=== PATIENT | male | born 1960 | race Caucasian/White ===

== ENCOUNTER → 2022-05-24 08:05 | Outpatient (CLI) | payer OTHER, SELFPAY ==
[2022-05-24 09:30] LABS: Add Manual Diff / Slide Review NO; Basophils Absolute Auto 0 /uL (0-100); Basophils Percent Auto 0.4 % (0-2); Eosinophils Absolute Auto 200 /uL (0-450); Hemoglobin 11.1 g/dL (13.5-17.5); Lymphocytes Absolute Auto 1100 /uL (1100-4500); Lymphocytes Percent Auto 13.6 % (25-40); Mean Corpuscular HGB Conc 31.7 % (30-36); Mean Corpuscular Hemoglobin 27.2 PG (26-34); Mean Corpuscular Volume 85.9 fL (80-100); Monocytes Absolute Auto 900 /uL (0-900); Neutrophils Absolute Auto 6000 /uL (1500-7000); Platelet Count 228 X10^3/uL (150-400); Red Blood Cell Count 4.08 X10^6/uL (4.5-5.9); Red Cell Distribution Width 14.2 % (11.6-14.8); White Blood Cell Count 8.2 X10^3/uL (4.5-11.0)
[2022-05-24 09:42] LABS: Hemoglobin A1C% w Est Avg Glu 6.4 % (4.0-6.0)
[2022-05-24 09:58] LABS: BUN Creatinine Ratio 24.5 (6-22); Blood Urea Nitrogen 26 mg/dL (9-20); Calcium 9.3 mg/dL (8.4-10.2); Carbon Dioxide 24 mmol/L (22-32); Chloride 103 mmol/L (98-107); Estimated Glomerular Filt Rate > 60 mL/min (>60); Glucose 68 mg/dL (80-110); HEMOLYSIS < 15 (0-50); Potassium 4.5 mmol/L (3.4-5.1); Sodium 139 mmol/L (137-145)
== END ==
PROVIDERS: Referring Provider Orthopaedic Surgery Orthopaedic Surgery of the Spine; Visit Provider Orthopaedic Surgery Orthopaedic Surgery of the Spine
DX: Z01.818 Encounter for other preprocedural examination (principal); Z01.812 Encounter for preprocedural laboratory examination; R73.9 Hyperglycemia, unspecified
CPT/HCPCS: 36415; 80048; 83036; 85025; 93005

== ENCOUNTER → 2022-06-11 09:07 | Outpatient (CLI) | payer OTHER, SELFPAY ==
[2022-06-11 09:50] LABS: COVID19 -Nasal RAPID Negative (Negative)
== END ==
PROVIDERS: Referring Provider Orthopaedic Surgery Orthopaedic Surgery of the Spine; Visit Provider Orthopaedic Surgery Orthopaedic Surgery of the Spine
DX: Z20.822 Contact with and (suspected) exposure to COVID-19 (principal)
CPT/HCPCS: 87635; C9803

== ENCOUNTER 2022-06-13 10:41 | Inpatient (IN) | payer OTHER, SELFPAY ==
[2022-06-05 09:40] VITALS: BMI 26.9
[2022-06-13] VITALS (19 sets, daily range): BP systolic 84–144; BP diastolic 51–86; PULSE 79–98; RESP 11–30; TEMP 36.2–37.2; O2SAT 92–99; BMI 26.9; BMI 28.7
[2022-06-13] MEDS: LACTATED RINGERS 1,000 ML 42 ML IV ×2 (11:27→16:34)
--- NOTE | 2022-06-13 12:37 | PM.PREOP ---
Pre-operative Note COVID-19 COVID-19 status: Negative Result date/Date tested (Pos, Neg/Pending): 06/12/22 Criteria for continued procedure: Expected advancement of disease process, Possibility delay results in more complex future surgery or treatment, Increased loss of function, Continuing or worsening of significant or severe pain, Deterioration of the patient's condition or overall health and Delay expected to result in less-positive ultimate med/surg outcome Interval Note History & Physical reviewed/Exam performed by Physician: Yes Changes to H&P: No
--- NOTE | 2022-06-13 13:15 | SUR.PREOP ---
Pt with moderate hand and arm tremors. Pt given his noon dose of Carb-levodopa. Pt states standing /walking helps with the tremors. Pt up with walker, walked around the unit with assist x1.
[2022-06-13] MEDS: CEFAZOLIN 2 GM/100 ML PREMIX 100 ML IV ×2 (13:42→20:28)
--- NOTE | 2022-06-13 14:05 | SUR.OPER ---
Prone on spine table, head in foam head support, padded chest and pelvic supports, gel pad at knees, lower legs supported by pillows; nipples, genitalia and toes free of pressure, arms secured on foam padded arm boards at <90 degrees abduction. Tape over blanket at thigh secured to table.
[2022-06-13] MEDS: BUPIVACAINE LIPOSOME 266 MG/20 ML VIAL INJ (14:10)
[2022-06-13] MEDS: BUPIVACAINE 0.5% W/ EPI (PF) 30 ML VIAL INJ (14:11)
--- NOTE | 2022-06-13 17:13 | DI.RAD.S_ITS ---
PROCEDURE: XR LUMBAR SPINE 2-3V INDICATIONS: L3-4, L4-5 TLIF TECHNIQUE: Intraoperative spot views of the lumbar spine were acquired. COMPARISON: None. FINDINGS: Intraoperative spot films are submitted and demonstrate lumbar fusion hardware. IMPRESSION: Intraoperative spot imaging as above. Dictated by: Analia Collins M.D. on 06/13/2022 at 17:48 Approved by: Analia Collins M.D. on 06/13/2022 at 17:48
--- NOTE | 2022-06-13 17:37 | P.OP_ITS ---
Operative Date/Time/Diagnoses Date of procedure: 06/13/22 Time of procedure: 13:20 Pre-op diagnosis: 1. L3-4, L4-5 post laminectomy syndrome 2. L3-4, L4-5 spinal stenosis with radiculopathy 3. Lumbar scoliosis Post-op diagnosis: same Procedure & Clinicians Procedure: 1. L3-4, L4-5 Postero-lateral and posterior interbody fusion 2. L3-4, L4-5 interbody cage placement. 3. L3-4, L4-5 decompressive laminectomy with bilateral facetecomies 4. L3-4, L4-5 Posterior segmental instrumentation 5. [place] of bone marrow from iliac crest 6. Utilization of microsurgical technique and operating microscope 7. Utilization of robotic assisted navigation Same procedure as scheduled: Yes Indications: Patient has been having chronic back pain and worsening lumbar radiculopathy. Had history of lumbar laminectomy with significant epidural scarring and degenerative scoliosis. Patient failed multiple conservative management with worsening pain weakness and numbness in his lower extremity. Patient has been having difficulty performing activity of daily living. After discussing risks benefits of treatment options, patient elected proceed with surgery. Surgeon: Sylvia Grace Cellar Hand: Hina Garg Anesthesia Type: General Operative Notes Closure Type: primary Specimen(s): none sent Prosthetic devices, grafts, tissues, transplants, or devices: GLobus CREO MIS screws, Rise cages Applied: catheter Estimated Blood Loss (mL): 200 Blood products transfused: none Procedure in detail: Patient was seen in the preoperative area. Risks and benefits of the surgery was discussed with the patient. Informed consent was obtained from the patient and placed in the chart. Surgical site was marked. Patient was taken to the operative room. General anesthesia was administered. Prophylactic antibiotic was given to the patient less than 30 min before the incision was made. Patient was placed into a prone position on the Errol table. Patient's back was then prepped and draped in the sterile fashion. Time-out was performed at this time. After patient was prepped and draped, patient's PSIS was palpated and marked bilaterally. Small 1 cm incision was made over the PSIS for placement of the reference probes. Two trocar was placed into the PSIS 1 on each side. The reference probe was attached to the trocar of the reference apparatus. At this time the C-arm imaging was used to confirm AP and lateral of L3, L4-L5 vertebrae and merged the C-arm imaging using the [employer] robotic navigation system with the CT of the lumbar spine. After successful merging was completed and confirmed, skin marker was used to rhonda out the skin incision using the [employer] robotic arm. Bilateral incision was made at this time. Pre templated trajectory was used and guided using the [employer] robotic navigation system for bilateral L3 L4, L5 pedicle screw placement. This was done by using the robotic arm to guide the high-speed bur to make a cortical entry point. Next a drill was placed also using the robotic arm and guided using the navigation system drilling partially through bilateral L3, L4, L5 pedicles. Next L3, L4, L5 pedicle screws it was pre templated and measured was placed onto the power delivery driver assistant and inserted into the pedicles bilaterally. After all 6 screws were placed C-arm imaging was taken of both AP and lateral to confirm the placement. Excellent placement of the screws were confirmed and a matched precisely with the pre planned screw placement using the navigation system. MARs retractor was inserted using [employer] guidence. Globus MARS retractors was placed inside the incision and docked onto the L3, L4 lamina. Using microsurgical technique and operating microscope, a L3, L4 laminectomy and L3-4, L4-5 facetectomy was performed using a [place] rongeur. Patient was found have severe lateral recess and neural foramen stenosis which was fully decompressed after the laminectomy facetectomy. More than 75% of the facets were removed during the process of decompression rendering L3-4, L4-5 level grossly unstable and required a fusion procedure at the same time. The disc space at L3-4, L4-5 was identified, and a total diskectomy was performed at L3- 4, L4-5 level. The endplates were decorticated using a rasp and shaver. The total diskectomy and decortication was performed at L3-4, L4-5 level in order to to accomplish a L3-4, L4-5 fusion. The local bone from the laminectomy and facetectomy was saved for local bone grafting. After the total diskectomy and decortication was completed, Trifecta bone graft material was combined with local bone that was harvested earlier. At this time, a separate skin is incision was made over the iliac crest. A Jamshidi needle was inserted into the iliac crest through a separate skin incision. 5 cc of bone marrow aspiration was obtained through the separate skin incision using a Jamshidi needle from the iliac crest. The bone marrow aspiration was combined with local bone and the Trifecta bone grafting material. The bone grafting material was placed into the L3-4, L4-5 interbody space along with expandable cages. One cage each was inserted into the L3-4 L4-5 interbody space along with bone graft material. The cage was expanded to its maximum height using the torque limiting screwdriver. The disc preparation as well as the cage insertion were also performed under navigation guidance. After the cage was placed, AP and lateral C-arm imaging was taken to confirm placement of the cage and excellent position was confirmed. Globus MARS retractor was inserted and docked onto the L3-4, L4-5 posterolateral gutter on the right side. Using the power drill, posterior-lateral decortication was performed at L3-4, L4-5 level until bleeding cortical bone was identified. The remaining bone grafting material was placed into the L3-4, L4-5 posterior lateral gutter he order to accomplish posterolateral fusion at the L3- 4, L4-5 level. At this time the tulips were attached to the L3, L4-L5 pedicle screw shanks. After measuring the length of the rods, they were inserted into the tulips of the pedicle screws and locked in place using locking caps and torque limiting screwdriver bilaterally. Total 6 caps and 2 titanium rods was used in order to complete the posterior instrumentation construct. After all the hardware was placed, and confirmed with AP and lateral C-arm imaging, the wound was then irrigated with sterile normal saline and packed with Ray-Mauro gauze for 3 min to accomplish hemostasis. After the gauze was removed the deep fascia was closed with #1 Vicryl suture. The subcutaneous layer was closed with 2-0 Vicryl. The skin was closed with skin emil. Patient tolerated the procedure well. There were no complications. Neuro monitoring system was used to monitor patient's neurologic status throughout entire procedure. There was no disturbance of the neural monitoring signals throughout the case. Complications: none Post-operative Condition: stable Disposition: PACU Plan for aftercare: Admit to inpatient hospital
[2022-06-13] MEDS: HYDROMORPHONE 2 MG INJ IV ×2 (17:55→18:03)
[2022-06-13] MEDS: hydrOXYzine 50 MG/ML INJ 25 MG IM (18:01)
[2022-06-13] MEDS: OXYCODONE IR 5 MG TABLET PO (18:19)
--- NOTE | 2022-06-13 19:51 | SUR.PHASEI ---
184: Brought patient to room and left with nurse Contreras on the floor. Got a call from floor nurse Beth that pt had a low BP. I went up to floor to assess patient, he was drowsy, however, vital signs were stable when I arrived at 1850. Monitored patient with at bedside, vital signs remained stable, pt became less drowzy, discussed with floor RN Ben and he said that he felt comfortable with me returning to PACU, pt was awake, stable, with a specialty call light for Parkinson's and at bedside at time of my departure.
[2022-06-13] MEDS: DOCUSATE 100 MG CAPSULE PO (20:29)
[2022-06-13] MEDS: INSULIN GLARGINE 100 UNIT/ML 3ML PEN 12 UNIT SUBCUT (20:29)
[2022-06-13] MEDS: CARBIDOPA-LEVODOPA ER 50/200 TABLET 2 EACH PO (20:29)
[2022-06-13] MEDS: SENNOSIDES 8.6 MG TABLET 17.2 MG PO (20:29)
[2022-06-13] MEDS: INSULIN LISPRO 100 UNIT/ML 3ML VIAL SUBCUT (20:41)
[2022-06-13] MEDS: SODIUM CHLORIDE 0.9% 1,000 ML 100 ML IV (20:51)
[2022-06-13] MEDS: OXYCODONE IR 5 MG TABLET 10 MG PO (20:53)
[2022-06-13] MEDS: HYDROMORPHONE 0.5 MG INJ IV (23:01)
[2022-06-14] VITALS (8 sets, daily range): BP systolic 81–136; BP diastolic 43–68; PULSE 86–103; RESP 18–22; TEMP 36.9–37.6; O2SAT 92–96
[2022-06-14] MEDS: OXYCODONE IR 5 MG TABLET 10 MG PO ×4 (00:09→08:16)
[2022-06-14] MEDS: ACETAMINOPHEN 325 MG TABLET PO (02:42)
[2022-06-14] MEDS: CEFAZOLIN 2 GM/100 ML PREMIX 100 ML IV (03:49)
[2022-06-14 05:49] LABS: Hematocrit 31.1 % (41-53)
[2022-06-14] MEDS: HYDROMORPHONE 0.5 MG INJ IV ×3 (05:54→22:46)
[2022-06-14] MEDS: DOCUSATE 100 MG CAPSULE PO ×2 (08:16→21:19)
[2022-06-14] MEDS: CARBIDOPA-LEVODOPA ER 50/200 TABLET 2 EACH PO ×3 (08:17→21:18)
[2022-06-14] MEDS: ATORVASTATIN 20 MG TABLET 10 MG PO (08:21)
[2022-06-14] MEDS: lisinopriL 5 MG TABLET 2.5 MG PO (08:22)
[2022-06-14] MEDS: LIDOCAINE PATCH 1 EACH ADH..PATCH TOP (08:22)
--- NOTE | 2022-06-14 08:56 | P.PN_ITS ---
Subjective Subjective Date Patient Seen: 06/14/22 Time Patient Seen: 08:57 Interval history: Patient is complaining of severe low back pain. His is at bedside. He is also having a significant flare in his Parkinson's symptoms with rigors and contractions. He notes his pain medications are not helping significantly and is requesting new pain medications. He was using Percocet in the 2 weeks prior to surgery. Exam Vital Signs (past 8 hours): - 06/14/22 01:25 06/14/22 05:00 06/14/22 08:05 Temperature 98.6 F 99.3 F 99.2 F Pulse Rate 86 97 H 103 H Respiratory Rate 18 18 Blood Pressure 115/66 126/64 136/60 Pulse Oximetry 96 95 93 Oxygen Flow Rate 0 0 0 Oxygen Delivery Method Room Air Oxygen Flow Rate 0 Narrative Exam Narrative: 62-year-old male, in bed with [id number] distress due to pain. He has significant contractions and shaking associated with his Parkinson's. Unable to look at his lumbar incision today due to pain and immobility. Bilateral lower extremity: He is able to wiggle his toes, sensation is grossly intact, bilateral calves are soft and nontender palpation. Objective Labs Result Diagrams: 06/14/22 05:31 Labs: Laboratory Results - last 24 hr 06/14/22 05:31 Hgb 10.0 L Hct 31.1 L PFSH Medical History Diabetes HLD (hyperlipidemia) Parkinson disease Spinal stenosis Wound of left foot (~2020) Surgical History Hx of discectomy Hx of tonsillectomy Social History household members: spouse Smoking Status: Never smoker alcohol intake: current Assessment & Plan Post-op Postoperative Procedures: Procedures Operation Date: 06/13/22 12:15 Actual Procedure Side Surgeon p L3-4, L4-5 TLIF w. posterior instrumentation -Robot Sylvia Grace MD Postoperative day: 1 Postoperative status: marginal pain control Postoperative status narrative: -marginal pain control status post L3-4, L4-5 TLIF -history of Parkinson's disease -insulin-dependent diabetic Postoperative plan narrative: -mobilize with PT/OT. Weightbearing as tolerated with front wheel walker. No bending, lifting, twisting -continue with multimodal pain management. Change Tylenol to scheduled, added p.o. Dilaudid for severe pain. Added lidocaine cream, patient is okay to use Salonpas patches from home. He also has Vistaril available for muscle spasm/pain. -continue with regular Parkinson's medications. Okay to use lidocaine ointment and Salonpas patches as needed. -DC urinary catheter once mobile, hopefully today or tomorrow -disposition: 1-2 days. Patient's would like to care for him at home and notes they have options for home health. I explained we will need to see how he does with physical therapy, there is a possibility he may need to go to detention facility. Quality VTE Deep Vein Thrombosis/Pulmonary Embolism Present on Admission: No
[2022-06-14] MEDS: hydrOXYzine pamoate 25 MG CAPSULE PO (10:51)
[2022-06-14] MEDS: ACETAMINOPHEN 325 MG TABLET 650 MG PO ×2 (10:51→17:24)
[2022-06-14] MEDS: HYDROMORPHONE 2 MG TABLET PO ×4 (10:51→21:29)
--- NOTE | 2022-06-14 12:30 | PT.IIE ---
Current Diagnoses Spondylolisthesis, lumbar region (06/13/22) Spinal stenosis, lumbosacral region (06/13/22) Surgery Performed Operation Date: 06/13/22 12:15 Actual Procedures p L3-4, L4-5 TLIF w. posterior instrumentation -Robot - Sylvia Grace MD Surgical History (Last Reviewed 06/14/22 @ 08:59 by Hina Garg PA-C) Hx of discectomy Hx of tonsillectomy Medical History (Last Reviewed 06/14/22 @ 08:59 by Hina Garg PA-C) Diabetes HLD (hyperlipidemia) Parkinson disease Spinal stenosis Wound of left foot (~2020) Physical Therapy Inpatient Evaluation/Re-Eval M1 PT/OT-IP Prior Functional Status Start: 06/14/22 12:43 Freq: NEEDED Status: Active Protocol: Document 06/14/22 12:30 DLM (Rec: 06/14/22 13:23 DLM [id number]) Medical Review Prior Functional Status Medical History Reviewed Yes Diet/Fluid Consistency Regular Communication WFL Mobility and Gait Independent, uses 4WW and walking sticks as needed, gets on/off floor independently, likes to do yoga stretches and work out on a rower. He drives. 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 5 steps with bilateral rails Home Environment Standard Height Toilet,Tub/ Shower Home Equipment Front Wheel Walker,Four Wheel Walker,Grab Bars Near Toilet, Grab Bars In Shower Additional Social History Comment has an electric recliner (not a lift chair), he is often on the floor, does not use a bed very much, wears a boot on left foot in the shower to manage his wound M2 PT-IP Current Condition Start: 06/14/22 12:43 Freq: NEEDED Status: Active Protocol: Document 06/14/22 12:30 DLM (Rec: 06/14/22 13:23 DLM [id number]) Physical Therapy Current Condition Current Condition Evaluation Date 06/14/22 Treatment Diagnosis L3-5 TLIF, impaired mobility/ gait Onset Date 06/13/22 M3 PT-IP Subjective Start: 06/14/22 12:43 Freq: NEEDED Status: Active Protocol: Document 06/14/22 12:30 DLM (Rec: 06/14/22 13:23 DLM [id number]) Subjective Physical Therapy Visit Type Type Initial Evaluation Visit Start Time 11:30 Visit Stop Time 12:30 Total Visit Minutes 60 Notes co-treated with occupational therapy for patient safety Number of TOP TRIMMER Visits 0 Physical Therapy Visit Comments Patient Comments He is eager to get up today. His has taken two weeks off of work to help at home. She is hoping for home health services. Patient Goals discharge home Therapy Pain Assessment Pain When Pain Assessed During Mobility Pain Present Pain Present Pain Reported Location back Intensity 7 Scale Used Numeric (0 - 10) Description Aching,Tender,With Movement Pain Behaviors Guarding Pain Management Techniques Modification of Treatment,Re- positioning,Timing of Activity with Medications M4 PT-IP Mobility and Gait Start: 06/14/22 12:43 Freq: NEEDED Status: Active Protocol: Document 06/14/22 12:30 DLM (Rec: 06/14/22 13:23 DLM [id number]) PT-Bed Mobility Assessment Rolling Type of Rolling Log Rolling,Roll to Left Level of Assist Moderate Assistance Supine to Sit Supine to Sit Maximum Assistance Scooting Scooting to Edge of Bed Moderate Assistance,Maximum Assistance PT-Transfer Assessment Sit to and From Stand Sit to and from Stand Moderate Assistance,2 Person Assistance,Use of Upper Extremities Equipment Transfer Assistive Device Gait Belt,Front Wheeled Walker Transfers Transfer Destination Chair Transfer Technique Stand Step Pivot Transfer Ability Level of Assist Contact Guard Assistance, Minimal Assistance,Use of Upper Extremities Comments Mobility Comments Post lean with initial sitting and it slowly improved. Drop in blood pressure during positional changes. Pt very slow to stabalize blood pressure sitting in recliner. See OT notes for blood pressure readings. His nurse was notified of low BP issues. Pt left sitting in recliner with BP 96/46 and set-up for lunch. Gait Assessment Gait Gait Assistance Required: Minimum Assistance,Moderate Assistance,1 Person Assist Distance (Feet) 10 Able to Maintain Weight Bearing Status Yes During Gait Assistive Devices Assistive Device Gait Belt,Front Wheeled Walker Gait Deviations General Gait Pattern Decreased Stride Length, Decreased Feet Clearance, Festinating,Flexed Trunk Factors Limiting Gait Function Factors Limiting Gait Function Abnormal Tonal Influences, Decreased Activity Tolerance, Decreased Strength, Incoordination,Limited Range of Motion,Pain,Poor Balance Comments Gait Comments Pt's Parkinsons symptoms present with rigidity, tremors , shuffling gait, freezing. He tends to loose his balance posteriorly in standing. Stand-by of second person used during gait to manage his fall risks. Pt reports mild light-headedness during gait but noted he becomes pale and is slow to recover in sitting. Stair Climbing Assessment Comments Stair Climbing Comments pt not ready to do stair training yet PT-Balance Assessment Sitting Balance and Reactions Static Sitting Balance Ability Fair Dynamic Sitting Balance Ability Poor Standing Balance and Reactions Static Standing Balance Ability Fair Dynamic Standing Balance Ability Poor Device Used FWW Comments Other Balance Tests/Deviations/Treatment posterior lean and/or losses : of balance sitting and standing M5 PT-IP Objective Assessments Start: 06/14/22 12:43 Freq: NEEDED Status: Active Protocol: Document 06/14/22 12:30 DLM (Rec: 06/14/22 13:23 DL [id number]) Orientation Orientation/Cognition Level of Alertness Alert Orientation Name,Age,Birthday,Month,Date, Year,Day of Week,Place, Situation Language Function Ability No Deficits Noted Safety Awareness Understands Safety Issues Memory Description No Deficits Noted Gross Range of Motion Upper Extremity ROM Assessment Within Functional Limits Lower Extremity ROM Assessment Within Functional Limits Strength Upper Extremity Strength Assessment Bilaterally Impaired Lower Extremity Strength Assessment Bilaterally Impaired Comments Strength Comments generalized weakness post-op Coordination Assessment Gross Coordination Gross Coordination Impaired Assessment Coordination Comments mild to moderate tremors Sensation Assessment Sensation Gross Sensation WNL Comments Sensation Comments hx of LE neuropathy, he denies numbness, no pain reported with left foot wound He reports history of cramping in his LE's. Muscle Tone Muscle Tone WNL No Comments Muscle Tone Comments rigidity throughout, mild to moderate M6 PT-IP Treatment Start: 06/14/22 12:43 Freq: NEEDED Status: Active Protocol: Document 06/14/22 12:30 DLM (Rec: 06/14/22 13:23 DL [id number]) Physical Therapy Treatment Exercises Exercises Ankle Pumps Education Education Provided Precautions,Post-Op Packet, Safety Other Treatments Other Treatment Performed His is present this visit and participated in post-op training M7 PT-IP Assessment and Plan Start: 06/14/22 12:43 Freq: NEEDED Status: Active Protocol: Document 06/14/22 12:30 DLM (Rec: 06/14/22 13:23 DLM [id number]) PT Summary Assessment and Plan Potential Rehabilitation Potential Good Status of Condition at Evaluation Unstable Summary Impairments Pain,ROM,Strength,Balance, Coordination,Tone,Bed Mobility ,Transfers,Gait,Activity Tolerance Assessment Summary Wilmar is alert and resting in bed. He has not been up out of bed since surgery. Noted increased Parkinsons symptoms today which he reports his medications normally manage. He is rigid getting up and has a significant post lean that slowly improved. He was able to ambulate around the bed with one person assist and FWW but needed stand by of a second person to manage his fall risks with low BP and light-headedness. Recommend pt have two person assist during therapy sessions to manage his fall risks. His BP is very slow to stabalize when sitting up in the recliner even with feet up and backrest reclined. Pt and his would like him to be able to discharge home but he is currently too much care of his to manage. If he is able to progress in therapy will work towards discharge home, otherwise he will need SNF rehab. Goals Bed Mobility Goal Minimal Assistance Transfer Goal Contact Guard Assistance,Front Wheeled Walker Gait Goal Contact Guard Assistance,Front Wheel Walker Gait Distance 100 feet Other Goals Up/down 5 steps with rail(s) and CG assist Days to Meet Goals 7 Frequency of Treatment Frequency Of Treatment Twice a Day Treatment Plan Physical Therapy Treatment Plan Bed Mobility Training,Transfer Training,Gait Training, Therapeutic Exercise,Balance Retraining,Post Op Education, Discharge Planning,Hot or Cold Pack,Neuromuscular Re-ed Other Recommendations and Next Treatment closely monitor blood pressure Focus during mobility Precautions Lumbar Precautions Log Roll,No Twisting,Limit Bending,Lifting Restriction of 10 lbs,Gait Belt above Incisional Area Other Precautions has wound left foot so ambulate with shoes when possible Recommendations To Nursing Amount of Assist Needed 2 Person Assist Discharge Recommendations PT Discharge Recommendations Home with 14/01 Assist Available,Home Health,SNF Rehab Other Discharge Recommendations He is progressing slowly, if he goes home will need home health services. May need SNF due to slow progress. May be able to progress transporation to private vehicle once blood pressure more stable. Transportation Needs at Discharge Stretcher/Ambulance
--- NOTE | 2022-06-14 13:00 | OT.IP.EVAL ---
Current Diagnoses Spondylolisthesis, lumbar region (06/13/22) Spinal stenosis, lumbosacral region (06/13/22) Surgery Performed Operation Date: 06/13/22 12:15 Actual Procedures p L3-4, L4-5 TLIF w. posterior instrumentation -Robot - Sylvia Grace MD Past Medical History (Last Reviewed 06/14/22 @ 08:59 by Hina Garg PA-C) Diabetes HLD (hyperlipidemia) Parkinson disease Spinal stenosis Wound of left foot (~2020) Surgical History (Last Reviewed 06/14/22 @ 08:59 by Hina Garg PA-C) Hx of discectomy Hx of tonsillectomy Occupational Therapy Inpatient Evaluation/Re-Eval M1 PT/OT-IP Prior Functional Status Start: 06/14/22 12:43 Freq: NEEDED Status: Active Protocol: Document 06/14/22 14:11 [facility] (Rec: 06/14/22 14:45 [facility] [id number]) Medical Review Prior Functional Status Medical History Reviewed Yes Diet/Fluid Consistency Regular Communication WFL Mobility and Gait Independent, uses 4WW and walking sticks as needed, gets on/off floor independently, likes to do yoga stretches and work out on a rower. He drives. Activities of Daily Living and IADL's Independent most of the time, needs occasional help from his for dressing, has help for wound care on left foot. Assist to help get into and out of the tub/shower. 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 5 steps with bilateral rails Home Environment Standard Height Toilet,Tub/ Shower Home Equipment Front Wheel Walker,Four Wheel Walker,Grab Bars Near Toilet, Grab Bars In Shower Additional Social History Comment has an electric recliner (not a lift chair), he is often on the floor, does not use a bed very much, wears a boot on left foot in the shower to manage his wound M2 OT-IP Current Condition Start: 06/14/22 13:21 Freq: Status: Active Protocol: Document 06/14/22 14:11 [facility] (Rec: 06/14/22 14:45 [facility] [id number]) Occupational Therapy Current Condition Current Condition Evaluation Date 06/14/22 Treatment Diagnosis s/p L3-4, L4-5 TLIF Diagnosis Onset Date 06/13/22 Post Operative Precautions Lumbar Precautions Log Roll,No Twisting,Limit Bending,Lifting Restriction of 10 lbs,Gait Belt above Incisional Area M3 OT- IP Subjective and Pain Start: 06/14/22 13:21 Freq: Status: Active Protocol: Document 06/14/22 14:11 [facility] (Rec: 06/14/22 14:45 [facility] [id number]) OT- Subjective Occupational Therapy Visit Type Type Initial Evaluation Visit Start Time 11:35 Visit Stop Time 13:00 Total Visit Minutes 85 Occupational Therapy Visit Comments Patient Comments Pt wanting to get up and his present in the room. Patient/Caregiver Goals Pt wanting to go home. OT Pain Assessment Pain When Pain Assessed During Mobility Pain Present Pain Present Pain Reported Location back Intensity 7 Scale Used Numeric (0 - 10) M4 OT- IP ADL's Start: 06/14/22 13:21 Freq: Status: Active Protocol: Document 06/14/22 14:11 [facility] (Rec: 06/14/22 14:45 [facility] [id number]) OT QLB-Fgck-Aveivqy Comments OT Self-Feeding Comments Pt able to manage his sandwich but has tremors in his hands due to Parkinson's OT ADL-Grooming Comments OT Grooming Comments Not performed. OT ADL-Oral Care Comments Oral Care Comments Not performed. OT ADL-Dressing General Eval Lower Body Dressing Ability Maximum Assistance Areas Needing Assistance Socks Comments OT Dressing Comments Able to initiate education of LB dressing equipment needs of superintendent construction, sock aid, and long handled shoe horn however pt has a wound on his left foot and would be best to have his to assist him at this time. OT ADL-Toileting General Evaluation Toileting Ability Total Assistance Comments OT Toileting Comments Quintero in place. OT ADL-Bathing Comments OT Bathing Comments Sponge bath more appropriate at this time due to low BP issues. Suggested pt will either benefit from a shower chair or tub bench at home. M5 OT- IP IADL's Start: 06/14/22 13:21 Freq: Status: Active Protocol: Document 06/14/22 14:11 [facility] (Rec: 06/14/22 14:45 [facility] [id number]) OT-Instrumental Activities of Daily Living Home Safety Awareness Home Safety Comments Due to decreased balance and medical needs of low BP, if pt going home best for his to assist with all his needs. Driving Driving Comments asking when pt can drive again. Pointed out pt not to drive until cleared by his surgeon. M6 OT- IP Functional Cognition Start: 06/14/22 13:21 Freq: Status: Active Protocol: Document 06/14/22 14:11 [facility] (Rec: 06/14/22 14:45 [facility] [id number]) Cognitive Factors Limiting Selfcare Function Cognitive Ability Level of Alertness Alert,Drowsy Patient Orientation Name,Place,Situation Attention Span Ability Capable of Focused Attention, Unable to Sustain Attention Ability to Follow Commands Able to Follow One Step Commands with Increased Time, Able to Follow One Step Commands with Repetition Safety Awareness Decreased Recall of Precautions,Decreased Ability to Apply Precautions Cognitive Comments Cognitive Assessment Comments Pt able to follow commands and needing cues to follow his back precautions, to keep the FWW close to him and vc for hand placement to push off from the bed. OT- Vision and Hearing OT- Hearing Assessment OT- Hearing Assessment WFL OT- Vision Assessment Vision Assessment Comments Pt wears glasses M7 OT- IP Mobility and Balance Start: 06/14/22 13:21 Freq: Status: Active Protocol: Document 06/14/22 14:11 [facility] (Rec: 06/14/22 14:45 [facility] [id number]) OT- Bed Mobility Assessment Rolling Type of Rolling Roll to Left Level of Assistance Moderate Assistance Supine to Sit Supine to Sit Assist Maximum Assistance,1 Person Assistance OT-Transfer Assessment Sit to and From Stand Sit to and from Stand Moderate Assistance,2 Person Assistance Transfers Transfer Ability Minimal Assistance,Moderate Assistance,2 Person Assistance Technique Transfer Destination Bed,Chair Transfer Technique Stand Step Pivot Devices Transfer Assistive Devices Gait Belt Comments Mobility Comments MODA to roll to the left and MAX AX to help get his trunk upright. MODA x2 to stand with FWW. Transfer and walking MIN/MODA x2 one person to help guide the FWW and another for steadying. Pt states usually runs low for BP Supine 101/61, sitting at edge of bed 96/57, after walking around the bed as pt looking pale 62/37 and 67/35- , reclined all the way back in the recliner 98/48 and 100/53, sitting with feet up 77/42, reclined back again 105/58, sitting with feet up 86/47,90/ 49, and sitting with feet down 90/52 and 96/46. Call light pressed for nursing during low BP, pt's nurse not available but nursing aid able to come and let pt's nurse be aware of Low BP. OT- Balance Assessment Sitting Balance and Reactions Static Sitting Balance Ability Fair Dynamic Sitting Balance Ability Poor Standing Balance and Reactions Static Standing Balance Ability Poor Dynamic Standing Balance Ability Poor M8 OT- IP Objective Assessments Start: 06/14/22 13:21 Freq: Status: Active Protocol: Document 06/14/22 14:11 [facility] (Rec: 06/14/22 14:45 [facility] [id number]) OT- Coordination Assessment Comments Coordination Comments Decreased due to tremors in his hands. M9 OT- IP Assessment and Plan Start: 06/14/22 13:21 Freq: Status: Active Protocol: Document 06/14/22 14:11 [facility] (Rec: 06/14/22 14:45 [facility] [id number]) OT Summary Assessment and Plan Potential Rehabilitation Potential Good Analytic Complexity at Evaluation High Summary OT Impairments Pain,Balance,Coordination, Functional Mobility,Self- Feeding,Grooming,Dressing, Toileting,Bathing,Toilet Transfers,Shower Transfers, Activity Tolerance Progress Towards Goals Slow Progress due to Pain,Slow Progress due to Medical Issues,Slow Progress due to Activity Tolerance Assessment Summary Pt high complexity as have low BP having othrostatic symptoms and BP dropped form 101/61 to 67/35 after walking around the bed at this time. Pt needing two person assist as unsteady on his feet and needing assist for FWW management. Pt having tremors from his Parkinson's and needing more assist for safety . Pt has a supportive to assist with his needs, however pending his progress and blood pressure may need short skilled rehab prior to going home. Goals Grooming Goal Independent Dressing Goal Minimal Assistance Toileting Goal Independent Bathing Goal Standby Assistance Toilet Transfer Goal Independent Shower Transfer Goal Minimal Assistance Patient/Caregiver Education Goal Caregiver Independent Assisting Patient Days to Meet Goals 10 Frequency of Treatment Frequency Of Treatment Once a Day Treatment Plan OT Treatment Plan ADL Training,Functional Mobility,Patient/Family Education,Discharge Planning Discharge Recommendations OT Discharge Recommendations SNF Rehab Other Discharge Recommendations Pending progress, caregover training, hipefully pt able to return home with his and 24/7 assist. But at this time short skilled rehab would be best. Transportation Needs at Discharge Wheelchair/Cabulance
--- NOTE | 2022-06-14 14:23 | PC.NURSE ---
BACK TO BED WITHOUT ISSUES , 500ML BOLUS STARTED
[2022-06-14] MEDS: SODIUM CHLORIDE 0.9% 100 ML 500 ML IV (14:30)
--- NOTE | 2022-06-14 14:36 | PT-IP ANOTE ---
checked pt and spouse in room as well. spouse stated that pt just got back to bed and BP is low. talked with nurse and confirmed and pt will be given a bolus. will f/u on the tomorrow. Pt and spouse arranged a 9am PT session.
--- NOTE | 2022-06-14 14:42 | CM.DANOTE ---
Addendum entered by KRZYSZTOF Vincent 06/16/22 13:50: ADD: Patient needs to bring his home med: dapagliflozin/metformin ER 5mg/1000mg to SNF, this is not available per [facility] at [facility] Original Note: Initial DCP Assessment Note Pt is a 62 yo male, resident of [place] , now POD#[address] Grace PMH includes: Parkinson Disease, Diabetes with non healing diabetic foot ulcer PCP: Dr. Tari Hernandez-financial assistance specialist Payer: [employer] Reviewed chart, met w/patient and his Devorah as OT Tracey was finishing her visit. Patient w/labile blood pressures today, making progress with the therapy team more challenging. Patient working w/OT this visit to eat his lunch, which appeared challenging. Conversation held primarily with spouse Patient lives w/ Devorah, who works time checker. Patient able to navigate his home indp w/use of FWW or walking sticks and is able to drive. Patient requires some assist with dressing. Spouse is the only caregiver. Patient has one daughter that lives in [place] Patient and spouse hopeful patient will be able to return home, possible with HH services. Spouse also open to a conversation about SNF options if recommended. Patient/spouse have previously discussed in home care options and have [employer] insurance that can be activated when patient requires addtl. assistance at home or in a facility Devorah appreciates the conversation and would like to discuss DCP options again tomorrow after patient has more opportunity to work w/therapy team Placed call to [facility]vette provider line P# [phone], this TRAIN STATION AGENT wondered if patient has an assigned Java Programmer to discuss DC needs (?) [place] that there is no CM available, when HH vs SNF is determined, pre auth request needed through the provider line/pre cert option Plan: CM team will plan to follow closely for coordination of DCP; heading soon into a hol KRZYSZTOF Delong Discharge Planning/Care Management CM Discharge Assessment Start: 06/14/22 08:45 Freq: Status: Active Protocol: Document 06/14/22 13:57 [facility] (Rec: 06/14/22 14:41 [facility] [id number]) Discharge Planning Assessment Assigned Financial Planning Adviser KRZYSZTOF Motley DPOA/Assigned Designee Name Devorah Wesley, spouse Contact Information [phone] Advance Directives? No History Provided By Patient,Significant Other, Medical Record Prior Living Arrangements Apartment/Condo Household Members spouse Type of transporation used prior to Relies on Others admit Independent with ADL's Yes: Parkinsons. Requires some assist Is patient alert and oriented? Yes Comment See PT note for detail Barriers to Discharge Yes Comment Patient's Parkinsons and labile blood pressures are barriers today to speedy recovery, per conversations w/ therapy team. Patient and spouse are hopeful patient will progress towards home w/ HH services. Patient has [employer] . PT/OT: Home w/HH vs SNF Discharge Plan Home with Home Health Transportation Arrangement Spouse Referrals Initiated None needed Additional Comment Awaiting further recommendations from therapy team. Patient is POD 1 Medicare Choice List Provided Yes SNF/HH Preference Will review further w/patient and spouse; patient has [employer] insurance so referrals may be dependent on in network providers Whiteboard Updated in Patient Room with Yes name and ext. # of Financial Planning Adviser
[2022-06-14] MEDS: INSULIN LISPRO 100 UNIT/ML 3ML VIAL SUBCUT ×2 (16:30→21:23)
[2022-06-14] MEDS: SENNOSIDES 8.6 MG TABLET 17.2 MG PO (21:19)
[2022-06-14] MEDS: INSULIN GLARGINE 100 UNIT/ML 3ML PEN 12 UNIT SUBCUT (21:23)
[2022-06-15] MEDS: HYDROMORPHONE 2 MG TABLET PO ×5 (00:15→21:27)
[2022-06-15 03:30] VITALS: BP 139/69; PULSE 94; RESP 20; TEMP 37.3; O2SAT 97
[2022-06-15] MEDS: HYDROMORPHONE 0.5 MG INJ IV (06:13)
--- NOTE | 2022-06-15 07:56 | P.PN_ITS ---
Subjective Subjective Date Patient Seen: 06/15/22 Time Patient Seen: 07:56 Interval history: Patient is complaining of moderate to severe low back pain. He is also requesting 3 tablets of his carbidopa levodopa, notes his neurologist says this is okay if he is in stressful situations. He still has his catheter in place. He denies any new numbness or tingling. Difficulty working with physical therapy yesterday because of his hypotension. Patient currently denies dizziness or lightheadedness. Exam Vital Signs (past 8 hours): - 06/15/22 03:30 Temperature 99.1 F Pulse Rate 94 H Respiratory Rate 20 Blood Pressure 139/69 Pulse Oximetry 97 Oxygen Flow Rate 0 Oxygen Delivery Method Room Air Oxygen Flow Rate 0 Narrative Exam Narrative: Pleasant 62-year-old male, resting comfortably in bed, his Parkinson's symptoms are definitely decreased as compared to yesterday in terms of spasticity. Lumbar dressing is clean, dry, intact. There is no surrounding erythema, induration, or alejandro pus. Bilateral lower extremity: Strength is 5/5 with hip flexion, knee extension, dorsiflexion, EHL; sensation is intact to light touch bilaterally; calves are soft and nontender palpation. Objective Labs Result Diagrams: 06/14/22 05:31 [facility] Medical History Diabetes HLD (hyperlipidemia) Parkinson disease Spinal stenosis Wound of left foot (~2020) Surgical History Hx of discectomy Hx of tonsillectomy Social History household members: spouse Smoking Status: Never smoker alcohol intake: current Assessment & Plan Post-op Postoperative Procedures: Procedures Operation Date: 06/13/22 12:15 Actual Procedure Side Surgeon p L3-4, L4-5 TLIF w. posterior instrumentation -Robot Sylvia Grace MD Postoperative day: 2 Postoperative status: marginal pain control Postoperative status narrative: -marginal pain control status post L3-4, L4-5 TLIF -history of Parkinson's disease -insulin-dependent diabetic -hypotension, acute, resolving Postoperative plan narrative: -mobilize with PT/OT. Weightbearing as tolerated with front wheel walker. No bending, lifting, twisting -continue with multimodal pain management. Change Tylenol to scheduled, added p.o. Dilaudid 4mg for severe pain. Added lidocaine cream, patient is okay to use Salonpas patches from home. He also has Vistaril available for muscle spasm /pain. -continue with regular Parkinson's medications, added 1 dose of 3 tablets of carbidopa levodopa. Okay to use lidocaine ointment and Salonpas patches as needed. -hypotension: Hold BP meds until BP is greater than 120/80, no dizziness with sitting or standing -DC urinary catheter once mobilizing well -disposition: Likely today or tomorrow. Patient's would like to care for him at home and notes they have options for home health. I explained we will need to see how he does with physical therapy, there is a possibility he may need to go to snf facility. -I will check in on him later today to see how he is doing Quality VTE Deep Vein Thrombosis/Pulmonary Embolism Present on Admission: No
[2022-06-15] MEDS: DOCUSATE 100 MG CAPSULE PO ×2 (08:06→21:28)
[2022-06-15] MEDS: ATORVASTATIN 20 MG TABLET 10 MG PO (08:06)
[2022-06-15] MEDS: hydrOXYzine pamoate 25 MG CAPSULE PO ×3 (08:07→21:28)
[2022-06-15] MEDS: LIDOCAINE PATCH 1 EACH ADH..PATCH TOP (08:07)
[2022-06-15 08:08] VITALS: BP 135/75; PULSE 94
[2022-06-15] MEDS: lisinopriL 5 MG TABLET 2.5 MG PO (08:08)
[2022-06-15] MEDS: CARBIDOPA-LEVODOPA ER 50/200 TABLET 3 EACH PO (08:31)
[2022-06-15] MEDS: HYDROMORPHONE 4 MG TABLET PO (08:31)
[2022-06-15] MEDS: INSULIN LISPRO 100 UNIT/ML 3ML VIAL SUBCUT ×3 (08:32→18:31)
[2022-06-15 09:10] VITALS: BP 136/60; PULSE 95; RESP 20; TEMP 37.4; O2SAT 97
--- NOTE | 2022-06-15 09:45 | PT.IPTN ---
Current Diagnoses Spondylolisthesis, lumbar region (06/13/22) Spinal stenosis, lumbosacral region (06/13/22) Surgery Performed Operation Date: 06/13/22 12:15 Actual Procedures p L3-4, L4-5 TLIF w. posterior instrumentation -Robot - Sylvia Grace MD Physical Therapy Treatment Note M2 PT-IP Current Condition Start: 06/14/22 12:43 Freq: NEEDED Status: Active Protocol: Document 06/15/22 09:02 SP (Rec: 06/15/22 15:02 SP [id number]) Physical Therapy Current Condition Current Condition Evaluation Date 06/14/22 Treatment Diagnosis L3-5 TLIF, impaired mobility/ gait Onset Date 06/13/22 M3 PT-IP Subjective Start: 06/14/22 12:43 Freq: NEEDED Status: Active Protocol: Document 06/15/22 09:02 SP (Rec: 06/15/22 15:02 SP [id number]) Subjective Physical Therapy Visit Type Type Treatment Note Visit Start Time 09:02 Visit Stop Time 09:45 Total Visit Minutes 43 Notes in room, attended tx but unable to assist with amount support needed during tx. Vitals: supine 136/60 HR 97 SaO2 97% on RA seated at EOB Mod/Max A: 137/ 66 HR 109. Number of PROGRAMMING INSTRUCTOR Visits 1 Physical Therapy Visit Comments Patient Comments He is eager to get up today with therapy, reports tremors worse today than yesterday. Pt and report pt does sleep on the floor in various parts of the house finds comfortable, reported even outside bedroom hallway. Find firm surface more supportive and comfortable and thus get better quality sleep . Pt reports having difficulty sleeping in the Hospital bed, wish could firm up the mattress. Patient Goals Depending on how mobilizes HHPT vs SNF if need to much support, open to SNF to get stronger. Therapy Pain Assessment Pain When Pain Assessed During Mobility Pain Present Pain Present Pain Reported Location back Intensity 9 Scale Used 3/10 back pain, increased 9/10 with mobility Description Acute,With Movement Pain Behaviors Facial Grimacing,Guarding, Restlessness,Wincing Pain Management Techniques Distraction,Modification of Treatment,Re-positioning, Timing of Activity with Medications M4 PT-IP Mobility and Gait Start: 06/14/22 12:43 Freq: NEEDED Status: Active Protocol: Document 06/15/22 09:02 SP (Rec: 12/23/22 15:02 SP [id number]) PT-Bed Mobility Assessment Rolling Type of Rolling Log Rolling,Roll to Right Level of Assist Maximal Assistance,1 Person Assistance Supine to Sit Supine to Sit Maximum Assistance,2 Person Assistance,Bedrails Scooting Scooting to Edge of Bed Maximum Assistance Scooting Up and Down in Bed Maximum Assistance PT-Transfer Assessment Sit to and From Stand Sit to and from Stand Maximum Assistance,2 Person Assistance,Use of Upper Extremities Equipment Transfer Assistive Device Gait Belt,Front Wheeled Walker Transfers Transfer Destination Bed Transfer Technique Sit<>stand only Comments Mobility Comments PROGRAMMING INSTRUCTOR instructed BLE exercises: AP (limited DF), heel slide x2 . Pt unable to complete LR L HOB flat, elevated HOB 40 deg Max A x2 for support right trunk and cues self UE on bed. Max A x2 scoot to EOB, challenged maintaining sitting balance due to forceful extension required Max Ax1 > Min A x1 with Max cues via PROGRAMMING INSTRUCTOR / for wt shift trunk forward over pelvis allow LE contact floor/core fac. Sit> stand Max A x2 w/ cues for UE push from bed, ed not pull from FWW tips back on pt. Static standing Max A x2, cues wt shift forward COG over AGUSTÍN , increase BUE/ LE tremulous stood for approx 15 sec but unable to reposition BLEs for transfer, Max B UE and tremulous WB on FWW. Max A x2 stand>sit, sitting support Mod A x1. Unable to lateral scoot up EOB Max A x2, sit>L SL support at trunk and LEs onto bed L SL>supine Max A x2, Max/ Total x2 scoot up in bed with bed declined. Pt had call light and all needs in reach before left, bed alarmed, updated communication board, Max A x2 w/ FW vs Micah. Will continue to assess progress in pm. Gait Assessment Comments Gait Comments Unable progress out of bed mobility due to increase pain, low activity tolerance, increase tremors BUE/BLEs. Stair Climbing Assessment Comments Stair Climbing Comments pt not ready to do stair training yet, has 5 stairs B HR to assess if safe to DC home. PT-Balance Assessment Sitting Balance and Reactions Static Sitting Balance Ability Poor Dynamic Sitting Balance Ability Poor Standing Balance and Reactions Static Standing Balance Ability Poor Device Used FWW Comments Other Balance Tests/Deviations/Treatment posterior lean and/or losses : of balance sitting and standing, requires Max A/ Min A with cues upright trunk more forward over pelvis. See mobility. M5 PT-IP Objective Assessments Start: 06/14/22 12:43 Freq: NEEDED Status: Active Protocol: Document 06/14/22 12:30 DLM (Rec: 06/14/22 13:23 DLM [id number]) Orientation Orientation/Cognition Level of Alertness Alert Orientation Name,Age,Birthday,Month,Date, Year,Day of Week,Place, Situation Language Function Ability No Deficits Noted Safety Awareness Understands Safety Issues Memory Description No Deficits Noted Gross Range of Motion Upper Extremity ROM Assessment Within Functional Limits Lower Extremity ROM Assessment Within Functional Limits Strength Upper Extremity Strength Assessment Bilaterally Impaired Lower Extremity Strength Assessment Bilaterally Impaired Comments Strength Comments generalized weakness post-op Coordination Assessment Gross Coordination Gross Coordination Impaired Assessment Coordination Comments mild to moderate tremors Sensation Assessment Sensation Gross Sensation WNL Comments Sensation Comments hx of LE neuropathy, he denies numbness, no pain reported with left foot wound He reports history of cramping in his LE's. Muscle Tone Muscle Tone WNL No Comments Muscle Tone Comments rigidity throughout, mild to moderate M6 PT-IP Treatment Start: 06/14/22 12:43 Freq: NEEDED Status: Active Protocol: Document 06/15/22 09:02 SP (Rec: 06/15/22 15:02 SP [id number]) Physical Therapy Treatment Exercises Exercises Ankle Pumps,Heel Slides Education Education Provided Precautions,Safety Other Treatments Other Treatment Performed His is present this visit , observed tx only due to increased assist required Max A x2 M7 PT-IP Assessment and Plan Start: 06/14/22 12:43 Freq: NEEDED Status: Active Protocol: Document 06/15/22 09:02 SP (Rec: 06/15/22 15:02 SP [id number]) PT Summary Assessment and Plan Potential Rehabilitation Potential Good Status of Condition at Evaluation Unstable Summary Impairments Pain,ROM,Strength,Balance, Coordination,Tone,Bed Mobility ,Transfers,Gait,Activity Tolerance Progress Towards Goals Slow Progress due to Pain,Slow Progress due to Medical Issues,Slow Progress due to Activity Tolerance Assessment Summary Pt requires Max A x2 for bed mobility, STS w/ FWW only able , increase BUE/BLEs tremulous, decreased strength and increased pain this tx making unsafe to progress. Pt reports little lightheaded but stable vitals. Pt had call light and all needs in reach before left, bed alarmed and remained in room. Goals Bed Mobility Goal Minimal Assistance Transfer Goal Contact Guard Assistance,Front Wheeled Walker Gait Goal Contact Guard Assistance,Front Wheel Walker Gait Distance 100 feet Other Goals Up/down 5 steps with rail(s) and CG assist Days to Meet Goals 7 Frequency of Treatment Frequency Of Treatment Twice a Day Treatment Plan Physical Therapy Treatment Plan Bed Mobility Training,Transfer Training,Gait Training, Therapeutic Exercise,Balance Retraining,Post Op Education, Discharge Planning,Hot or Cold Pack,Neuromuscular Re-ed Other Recommendations and Next Treatment monitor BP, bed mob, transfers Focus and gait if able. Precautions Lumbar Precautions Log Roll,No Twisting,Limit Bending,Lifting Restriction of 10 lbs,Gait Belt above Incisional Area Other Precautions has wound left foot so ambulate with shoes when possible Recommendations To Nursing Amount of Assist Needed 2 Person Assist Discharge Recommendations PT Discharge Recommendations Home with 24/ Assist Available,Home Health,SNF Rehab Other Discharge Recommendations Pt may need SNF due to slow progress in strength, pain, activity tolerance. Forceful extension this tx recommending stretcher vs [facility]. Transportation Needs at Discharge Stretcher/Ambulance
[2022-06-15 09:56] LABS: Hematocrit 31.5 % (41-53); Hemoglobin 9.9 g/dL (13.5-17.5)
[2022-06-15] MEDS: ACETAMINOPHEN 325 MG TABLET 650 MG PO ×2 (13:41→18:33)
[2022-06-15] MEDS: CARBIDOPA-LEVODOPA ER 50/200 TABLET 2 EACH PO ×2 (15:46→21:28)
--- NOTE | 2022-06-15 16:53 | PT.IPTN ---
Current Diagnoses Spondylolisthesis, lumbar region (06/13/22) Spinal stenosis, lumbosacral region (06/13/22) Surgery Performed Operation Date: 06/13/22 12:15 Actual Procedures p L3-4, L4-5 TLIF w. posterior instrumentation -Robot - Sylvia Grace MD Physical Therapy Treatment Note M2 PT-IP Current Condition Start: 06/14/22 12:43 Freq: NEEDED Status: Active Protocol: Document 06/15/22 15:53 SP (Rec: 06/15/22 17:58 SP [id number]) Physical Therapy Current Condition Current Condition Evaluation Date 06/14/22 Treatment Diagnosis L3-5 TLIF, impaired mobility/ gait Onset Date 06/13/22 M3 PT-IP Subjective Start: 06/14/22 12:43 Freq: NEEDED Status: Active Protocol: Document 06/15/22 15:53 SP (Rec: 06/15/22 17:58 SP [id number]) Subjective Physical Therapy Visit Type Type Treatment Note Visit Start Time 15:53 Visit Stop Time 16:53 Total Visit Minutes 60 Notes in room when arrived. CABLE FORMER provided 2nd person required throughout tx. unable to assist amount pt requires at this time. Vitals: supine 129/66 HR 91 SaO2 97% on RA post mobility: 109/54 HR 95. No reports dizziness. Number of TECHNICIAN SUPPORT ENGINEER Visits 2 Physical Therapy Visit Comments Patient Comments Pt is eager to get up with therapy, wants to get to chair and walk in the hallway if able. Patient Goals Depending on how mobilizes HHPT vs SNF if need to much support, open to SNF to get stronger. Therapy Pain Assessment Pain When Pain Assessed During Mobility Pain Present Pain Present Pain Reported Location back Intensity 5 Scale Used Numeric (0 - 10) Description Aching,Spasm,With Movement Pain Behaviors Facial Grimacing,Guarding, Wincing Pain Management Techniques Distraction,Modification of Treatment,Re-positioning, Timing of Activity with Medications M4 PT-IP Mobility and Gait Start: 06/14/22 12:43 Freq: NEEDED Status: Active Protocol: Document 06/15/22 15:53 SP (Rec: 06/15/22 17:58 SP [id number]) PT-Bed Mobility Assessment Rolling Type of Rolling Log Rolling,Roll to Right Level of Assist Minimal Assistance,Moderate Assistance,1 Person Assistance Supine to Sit Supine to Sit Maximum Assistance,2 Person Assistance,Bedrails Scooting Scooting to Edge of Bed Maximum Assistance PT-Transfer Assessment Sit to and From Stand Sit to and from Stand Maximum Assistance,2 Person Assistance,Use of Upper Extremities Equipment Transfer Assistive Device Gait Belt,Front Wheeled Walker Transfers Transfer Destination Chair,Bedside Commode Transfer Technique Stand Step Pivot Transfer Ability Level of Assist Maximum Assistance,2 Person Assistance,Use of Upper Extremities Comments Mobility Comments TECHNICIAN SUPPORT ENGINEER instructed warm up ex: AP, HS x3 reps. Completed LR R knees bent while LUE reach across body Min/Mod A, R SL>sit Max A x2 trunk right support and cues LLE to EOB/push BUEs on bed/ bed rail. Mod/Max A for sit stability due to retro lean. Scoot Max A x2, target tall hip flexion wt shift and support pelvis scoot forward. Sit EOB Max/Min/CGA/close SBA. Sit>stand Max A x2 cued upright posture/quad fac/core fac to complete full stand. SPT bed>BSC Max A x2 trunk stability w/ FWW hand over hand reach back slow descent sit, unsuccessful BM on commode must have just been gas moving around, STS/SPT BSC>chair Max A x1, CGA/Min . Pt brief rest on chair requested gait further into hallway if able. STS Max A x1, Min A 2nd person due to challenge flexion wt shift due to extension/retro tone coming to standing. Pt stiff tone come to standing Max A x1 -2, challenge initial step then able progress semi stagger stepping with increased pacing approx 60 ft total with 3 stop stand rests with w/c follow for safety but not needed. Pt returned to chair: cues pivot small steps w/ fww fully and look both sides center self prior sit, tremors BUE/ BLEs Mod/Max A x1 and CGA 2nd person for safety , once tremors lessened hand over hand reach back sit support controlled hip flexion . Max A to scoot back in chair cued BUE on chair arms vs seat cushion and therapist blocked Bknees assist scoot back. Pillows behind back via . Gait Assessment Gait Gait Assistance Required: Moderate Assistance,1 Person Assist Distance (Feet) 60 Able to Maintain Weight Bearing Status Yes During Gait Assistive Devices Assistive Device Gait Belt,Front Wheeled Walker Gait Deviations General Gait Pattern Decreased Stride Length, Decreased Feet Clearance, Festinating,Flexed Trunk, Narrow Based Gait Factors Limiting Gait Function Factors Limiting Gait Function Abnormal Tonal Influences, Decreased Activity Tolerance, Decreased Strength, Incoordination,Limited Range of Motion,Pain,Poor Balance, Poor Safety Awareness Comments Gait Comments Cues for tall trunk hip flexion Max A x1 with target anterior shlds best to move to , increase stride, tall scapular depression WB on FWW and core fac to assist abdominal bracing and lesson tremors, stability Stair Climbing Assessment Comments Stair Climbing Comments pt not ready to do stair training yet, has 5 stairs B HR (30 wide) to assess if safe to DC home. PT-Balance Assessment Sitting Balance and Reactions Static Sitting Balance Ability Fair Dynamic Sitting Balance Ability Poor Standing Balance and Reactions Static Standing Balance Ability Poor Dynamic Standing Balance Ability Poor Device Used FWW Comments Other Balance Tests/Deviations/Treatment posterior lean initially and : losses of balance sitting and standing, requires Max A x1 then lessons with+ Min A with cues upright trunk more forward over pelvis. See mobility. M5 PT-IP Objective Assessments Start: 06/14/22 12:43 Freq: NEEDED Status: Active Protocol: Document 06/14/22 12:30 DLM (Rec: 06/14/22 13:23 DLM [id number]) Orientation Orientation/Cognition Level of Alertness Alert Orientation Name,Age,Birthday,Month,Date, Year,Day of Week,Place, Situation Language Function Ability No Deficits Noted Safety Awareness Understands Safety Issues Memory Description No Deficits Noted Gross Range of Motion Upper Extremity ROM Assessment Within Functional Limits Lower Extremity ROM Assessment Within Functional Limits Strength Upper Extremity Strength Assessment Bilaterally Impaired Lower Extremity Strength Assessment Bilaterally Impaired Comments Strength Comments generalized weakness post-op Coordination Assessment Gross Coordination Gross Coordination Impaired Assessment Coordination Comments mild to moderate tremors Sensation Assessment Sensation Gross Sensation WNL Comments Sensation Comments hx of LE neuropathy, he denies numbness, no pain reported with left foot wound He reports history of cramping in his LE's. Muscle Tone Muscle Tone WNL No Comments Muscle Tone Comments rigidity throughout, mild to moderate M6 PT-IP Treatment Start: 06/14/22 12:43 Freq: NEEDED Status: Active Protocol: Document 06/15/22 15:53 SP (Rec: 06/15/22 17:58 SP [id number]) Physical Therapy Treatment Exercises Exercises Ankle Pumps,Heel Slides Education Education Provided Precautions,Safety Other Treatments Other Treatment Performed Pt recalled 1/3 precautions missed lifting/bending, able to verbalize with prompting BLT. M7 PT-IP Assessment and Plan Start: 06/14/22 12:43 Freq: NEEDED Status: Active Protocol: Document 06/15/22 15:53 SP (Rec: 06/15/22 17:58 SP [id number]) PT Summary Assessment and Plan Potential Rehabilitation Potential Good Status of Condition at Evaluation Unstable Summary Impairments Pain,ROM,Strength,Balance, Coordination,Tone,Bed Mobility ,Transfers,Gait,Activity Tolerance Progress Towards Goals Slow Progress due to Pain,Slow Progress due to Medical Issues,Slow Progress due to Activity Tolerance Assessment Summary Pt continues be challenged mobility due to extension tone , max cues and Max A x2 bed mob, Mod/Max A x1-2 for transfers w/FWW but not consistant so recommending Max A x2 if able w/fww. Recommending SNF for mobility strengthening vs HHPT. Pt is not consistant with low physical assist of 1 person and unable to complete stair mgt training needs to safe DC home. Will continue to assess progress. Goals Bed Mobility Goal Minimal Assistance Transfer Goal Contact Guard Assistance,Front Wheeled Walker Gait Goal Contact Guard Assistance,Front Wheel Walker Gait Distance 100 feet Other Goals Up/down 5 steps with rail(s) and CG assist Days to Meet Goals 7 Frequency of Treatment Frequency Of Treatment Twice a Day Treatment Plan Physical Therapy Treatment Plan Bed Mobility Training,Transfer Training,Gait Training, Therapeutic Exercise,Balance Retraining,Post Op Education, Discharge Planning,Hot or Cold Pack,Neuromuscular Re-ed Other Recommendations and Next Treatment monitor BP, bed mob, transfers Focus and gait w/ FWW longer distances and stair mgt if safe and able. If pt improved drastically CGT with including gait & stairs. Precautions Lumbar Precautions Log Roll,No Twisting,Limit Bending,Lifting Restriction of 10 lbs,Gait Belt above Incisional Area Other Precautions has wound left foot so ambulate with shoes when possible Recommendations To Nursing Amount of Assist Needed 2 Person Assist Discharge Recommendations PT Discharge Recommendations Home with / Assist Available,Home Health,SNF Rehab Other Discharge Recommendations May need SNF due to slow improvements in strength mobility and activity tolerance not consistant. unable provide physical assist needs thus far. Transportation Needs at Discharge Wheelchair/Cabulance,Stretcher /Ambulance
[2022-06-15 18:49] VITALS: BP 112/54; PULSE 101; RESP 18; TEMP 36.9; O2SAT 98
[2022-06-15 19:20] VITALS: BP 113/47; PULSE 94; RESP 18; TEMP 36.9; O2SAT 95
[2022-06-15] MEDS: SENNOSIDES 8.6 MG TABLET 17.2 MG PO (21:27)
[2022-06-15] MEDS: METFORMIN XR 500 MG TABLET 1000 MG PO (21:28)
[2022-06-15] MEDS: INSULIN GLARGINE 100 UNIT/ML 3ML PEN 12 UNIT SUBCUT (21:29)
[2022-06-16] VITALS: BP 156/73; PULSE 94; RESP 18; TEMP 37.6; O2SAT 96
[2022-06-16] MEDS: ACETAMINOPHEN 325 MG TABLET 650 MG PO ×5 (00:51→23:07)
[2022-06-16] MEDS: HYDROMORPHONE 2 MG TABLET PO ×2 (00:52→05:59)
[2022-06-16 04:56] VITALS: BP 145/70; PULSE 86; RESP 18; TEMP 37; O2SAT 95
--- NOTE | 2022-06-16 06:10 | PC.NURSE ---
Pt requesting carbidopa-levodopa dose early d/t increasing tremors. Provider contacted, OK to give dose early.
[2022-06-16] MEDS: CARBIDOPA-LEVODOPA ER 50/200 TABLET 2 EACH PO ×3 (06:13→20:26)
--- NOTE | 2022-06-16 07:58 | PM.PNPO.1 ---
Subjective Subjective Date Patient Seen: 06/16/22 Time Patient Seen: 07:58 Interval history: Lying in bed, tremor apparent in extremities. C/o back pain when transferring, denies leg pain. Rodriguez catheter remains in place. He would like to go home if he is able to transfer independently. He has been making slow progress w/ PT thus far. Discussed removing rodriguez and changing pain meds to oxycodone for better ambulation and longer pain coverage. Exam Vital Signs (past 8 hours): - 06/16/22 00:00 06/16/22 04:56 Temperature 99.7 F H 98.6 F Pulse Rate 94 H 86 Respiratory Rate 18 18 Blood Pressure 156/73 H 145/70 H Pulse Oximetry 96 95 Oxygen Flow Rate 0 0 Oxygen Delivery Method Room Air Oxygen Flow Rate 0 Narrative Exam Narrative: 5/5 strength in quadriceps, hamstrings, DF, PF, EHL bilaterally. Sensation to light touch intact throughout BLE. Calves soft, compressible, nontender and without palpable cords or masses. Dressing placed intraoperatively CDI. Objective Labs Result Diagrams: 06/15/22 09:25 Labs: Laboratory Results - last 24 hr 06/15/22 09:25 Hgb 9.9 L Hct 31.5 L PFSH Medical History (Updated 06/16/22 @ 08:02 by Luz Marina Vick PA-C) Diabetes HLD (hyperlipidemia) Parkinson disease Spinal stenosis Wound of left foot (~2020) Surgical History (Updated 06/16/22 @ 08:02 by Luz Marina Vick PA-C) Hx of discectomy Hx of tonsillectomy Social History household members: spouse Smoking Status: Never smoker alcohol intake: current Assessment & Plan Post-op Assessment and plan (1) S/P lumbar fusion: Assessment and Plan narrative: D/c rodriguez, change from PO dilaudid to oxycodone. Work w/ PT today in hopes of discharge tomorrow. (2) Acute postoperative anemia due to expected blood loss: Assessment and Plan narrative: Asymptomatic, no intervention needed at this time. (3) Diabetes: Assessment and Plan narrative: Glucose 267 last night but has otherwise been < 200 during admission; continue home meds, no need to add SSI at this point. (4) Parkinson disease: Assessment and Plan narrative: Continue home meds. Postoperative Procedures: Procedures Operation Date: 06/13/22 12:15 Actual Procedure Side Surgeon p L3-4, L4-5 TLIF w. posterior instrumentation -Robot Sylvia Grace MD Postoperative day: 3 Quality VTE Deep Vein Thrombosis/Pulmonary Embolism Present on Admission: No
[2022-06-16 08:27] VITALS: BP 130/68; PULSE 83; RESP 16; TEMP 36.6; O2SAT 96
[2022-06-16] MEDS: INSULIN LISPRO 100 UNIT/ML 3ML VIAL SUBCUT ×4 (08:42→20:28)
[2022-06-16] MEDS: ATORVASTATIN 20 MG TABLET 10 MG PO (08:45)
[2022-06-16] MEDS: lisinopriL 5 MG TABLET 2.5 MG PO (08:45)
[2022-06-16] MEDS: LIDOCAINE PATCH 1 EACH ADH..PATCH TOP (08:46)
[2022-06-16] MEDS: DOCUSATE 100 MG CAPSULE PO (08:46)
--- NOTE | 2022-06-16 09:57 | PT.IPTN ---
Current Diagnoses Acute posthemorrhagic anemia (06/13/22) Type 2 diabetes mellitus without complications (06/13/22) Parkinson's disease (06/13/22) Spondylolisthesis, lumbar region (06/13/22) Spinal stenosis, lumbosacral region (06/13/22) Arthrodesis status (06/13/22) Surgery Performed Operation Date: 06/13/22 12:15 Actual Procedures p L3-4, L4-5 TLIF w. posterior instrumentation -Robot - Sylvia Grace MD Physical Therapy Treatment Note M2 PT-IP Current Condition Start: 06/14/22 12:43 Freq: NEEDED Status: Active Protocol: Document 06/15/22 15:53 SP (Rec: 06/15/22 17:58 SP [id number]) Physical Therapy Current Condition Current Condition Evaluation Date 06/14/22 Treatment Diagnosis L3-5 TLIF, impaired mobility/ gait Onset Date 06/13/22 M3 PT-IP Subjective Start: 06/14/22 12:43 Freq: NEEDED Status: Active Protocol: Document 06/16/22 09:29 LJ (Rec: 06/16/22 09:56 LJ [id number]) Subjective Physical Therapy Visit Type Type Treatment Note Visit Start Time 08:48 Visit Stop Time 09:14 Total Visit Minutes 26 Notes in room. RN passing meds and removing Quintero. Physical Therapy Visit Comments Patient Comments Pt states he wants to get up and sit on BSC for a while. Pt feels Levadopa is helping o relieve his tremors. Therapy Pain Assessment Pain When Pain Assessed During Mobility Pain Present Pain Present Pain Reported Location back Intensity 5 Scale Used Numeric (0 - 10) Pain Management Techniques Distraction,Modification of Treatment,Re-positioning, Timing of Activity with Medications M4 PT-IP Mobility and Gait Start: 06/14/22 12:43 Freq: NEEDED Status: Active Protocol: Document 06/16/22 09:29 LJ (Rec: 06/16/22 09:56 LJ [id number]) PT-Bed Mobility Assessment Rolling Type of Rolling Log Rolling,Roll to Right Level of Assist Minimal Assistance,Moderate Assistance,1 Person Assistance Supine to Sit Supine to Sit Maximum Assistance,1 Person Assistance,Bedrails Scooting Scooting to Edge of Bed Moderate Assistance PT-Transfer Assessment Sit to and From Stand Sit to and from Stand Moderate Assistance,2 Person Assistance,Use of Upper Extremities Equipment Transfer Assistive Device Gait Belt,Front Wheeled Walker Transfers Transfer Destination Bedside Commode Transfer Technique Stand Step Pivot Transfer Ability Level of Assist Moderate Assistance,2 Person Assistance,Use of Upper Extremities Comments Mobility Comments Pt instructed in warm-up exercises including AP, HS, bridging. Bed flattened and rotated toward right. Pt completed logroll CGA-Adriana for last part of logroll onto shoulder. Pt instructed in bridging to scoot self closer to side of bed. SL>sit on edge of bed MaxA x1 with head of bed tilted 4 degrees. Pt required assist x1 to scoot to side of bed once in sitting position. [employer] pulled on estrada. Pt required initial MaxA x1 to correct retropulsion. Using bed cane and C arm rrest pt stood Max cues and ModA x2. Pt reports he fells he is going to fall backwards. Pt completed several tiny side and backwards steps to position self in front of BSC. MinAx2 fot safety and balance . Pt able to control descent onto [facility] CGA by reaching back. Pt was left in room with nursing and in attendance . Gait Assessment Comments Gait Comments Pt refused gait training at this time. Stair Climbing Assessment Comments Stair Climbing Comments pt not ready to do stair training yet, has 5 stairs B HR (30 wide) to assess if safe to DC home. PT-Balance Assessment Sitting Balance and Reactions Static Sitting Balance Ability Fair Dynamic Sitting Balance Ability Poor Standing Balance and Reactions Static Standing Balance Ability Poor Dynamic Standing Balance Ability Poor Device Used FWW Comments Other Balance Tests/Deviations/Treatment Pt requireds less assist once : a transition has been completed and he has had time to allow tremors to subside. M5 PT-IP Objective Assessments Start: 06/14/22 12:43 Freq: NEEDED Status: Active Protocol: Document 06/14/22 12:30 DLM (Rec: 06/14/22 13:23 DLM [id number]) Orientation Orientation/Cognition Level of Alertness Alert Orientation Name,Age,Birthday,Month,Date, Year,Day of Week,Place, Situation Language Function Ability No Deficits Noted Safety Awareness Understands Safety Issues Memory Description No Deficits Noted Gross Range of Motion Upper Extremity ROM Assessment Within Functional Limits Lower Extremity ROM Assessment Within Functional Limits Strength Upper Extremity Strength Assessment Bilaterally Impaired Lower Extremity Strength Assessment Bilaterally Impaired Comments Strength Comments generalized weakness post-op Coordination Assessment Gross Coordination Gross Coordination Impaired Assessment Coordination Comments mild to moderate tremors Sensation Assessment Sensation Gross Sensation WNL Comments Sensation Comments hx of LE neuropathy, he denies numbness, no pain reported with left foot wound He reports history of cramping in his LE's. Muscle Tone Muscle Tone WNL No Comments Muscle Tone Comments rigidity throughout, mild to moderate M6 PT-IP Treatment Start: 06/14/22 12:43 Freq: NEEDED Status: Active Protocol: Document 06/16/22 09:29 (Rec: 06/16/22 09:56 [id number]) Physical Therapy Treatment Exercises Exercises Ankle Pumps,Heel Slides Education Education Provided Precautions,Safety Other Treatments Other Treatment Performed bridging to scoot to side of bed M7 PT-IP Assessment and Plan Start: 06/14/22 12:43 Freq: NEEDED Status: Active Protocol: Document 06/16/22 09:29 (Rec: 06/16/22 09:56 [id number]) PT Summary Assessment and Plan Summary Assessment Summary Pt continues to be challenged with mobility however required less assist for bed mobility MaxA-ModA x1 and ModA x1 to sit on side of bed. Pt able to sit>stand ModAX2- MinAx1. Second bilingual administrative assistant more for safety than assist. Pt requireds less assist once a transition has been completed and he has had time to allow tremors to subside. Pt not able to attempt stair training at this time. Will continue to assess. Goals Bed Mobility Goal Minimal Assistance Transfer Goal Contact Guard Assistance,Front Wheeled Walker Gait Goal Contact Guard Assistance,Front Wheel Walker Gait Distance 100 feet Other Goals Up/down 5 steps with rail(s) and CG assist Days to Meet Goals 7 Frequency of Treatment Frequency Of Treatment Twice a Day Treatment Plan Physical Therapy Treatment Plan Bed Mobility Training,Transfer Training,Gait Training, Therapeutic Exercise,Balance Retraining,Post Op Education, Discharge Planning,Hot or Cold Pack,Neuromuscular Re-ed Other Recommendations and Next Treatment monitor BP, bed mob, transfers Focus and gait w/ FWW longer distances and stair mgt if safe and able. If pt improved drastically CGT with including gait & stairs. Precautions Lumbar Precautions Log Roll,No Twisting,Limit Bending,Lifting Restriction of 10 lbs,Gait Belt above Incisional Area Other Precautions has wound left foot so ambulate with shoes when possible Recommendations To Nursing Amount of Assist Needed 2 Person Assist Discharge Recommendations PT Discharge Recommendations Home with 24/7 Assist Available,Home Health,SNF Rehab Other Discharge Recommendations May need SNF due to slow improvements in strength mobility and activity tolerance not consistant. unable provide physical assist needs thus far. Transportation Needs at Discharge Wheelchair/Cabulance,Stretcher /Ambulance
[2022-06-16] MEDS: OXYCODONE IR 5 MG TABLET PO ×3 (11:22→23:07)
[2022-06-16 12:00] VITALS: BP 141/68; PULSE 95; RESP 16; TEMP 36.6; O2SAT 95
[2022-06-16] MEDS: METFORMIN PO ×2 (12:03→20:26)
[2022-06-16] MEDS: DAPAGLIFLOZIN PO ×2 (12:03→20:26)
--- NOTE | 2022-06-16 13:00 | PT-IP ANOTE ---
Checked on pt at 1245. Refused stating he has transfered from bed to BSC to chair to bed several times. Returned to bed ~10 ago. Will check back later.
[2022-06-16] MEDS: hydrOXYzine pamoate 25 MG CAPSULE PO ×2 (13:39→23:07)
--- NOTE | 2022-06-16 13:42 | CM.DPNOTE ---
DCP Note Spoke today w/ patient and spouse, reviewed DCP options. Currently therapy team recommending SNF and although spouse remains hopeful patient come home w/HH, she and patient willing to review IPAD for MCR choice list, SNF options. 1. [facility] 2. [facility] Discussed referral with Maria Guadalupe at [facility] and she accepted patient, explained that [facility] is currently waiving the need for pre authorization to SNF, so Maria Guadalupe can accept Saturday and submit papers to [facility] after admission Updated patient and spouse. Spouse suggests seeing how patient is doing w/PT Saturday morning and if SNF still recommended, DC to [facility]. If cleared for home, home w/spouse, referral to HH needed PASRR completed in anticipation of DC to SNF, [facility] on Saturday. VALENT[place]
--- NOTE | 2022-06-16 15:14 | PT.IPTN ---
Current Diagnoses Acute posthemorrhagic anemia (06/13/22) Type 2 diabetes mellitus without complications (06/13/22) Parkinson's disease (06/13/22) Spondylolisthesis, lumbar region (06/13/22) Spinal stenosis, lumbosacral region (06/13/22) Arthrodesis status (06/13/22) Surgery Performed Operation Date: 06/13/22 12:15 Actual Procedures p L3-4, L4-5 TLIF w. posterior instrumentation -Robot - Sylvia Grace MD Physical Therapy Treatment Note M2 PT-IP Current Condition Start: 06/14/22 12:43 Freq: NEEDED Status: Active Protocol: Document 06/15/22 15:53 SP (Rec: 06/15/22 17:58 SP [id number]) Physical Therapy Current Condition Current Condition Evaluation Date 06/14/22 Treatment Diagnosis L3-5 TLIF, impaired mobility/ gait Onset Date 06/13/22 M3 PT-IP Subjective Start: 06/14/22 12:43 Freq: NEEDED Status: Active Protocol: Document 06/16/22 14:32 LJ (Rec: 06/16/22 15:14 LJ [id number]) Subjective Physical Therapy Visit Type Type Treatment Note Visit Start Time 13:36 Visit Stop Time 14:28 Total Visit Minutes 52 Notes in room. Pt agreeable to do PT. Physical Therapy Visit Comments Patient Comments Pt states he would like to sit on the BSC. Therapy Pain Assessment Pain When Pain Assessed During Mobility Pain Present Pain Present Pain Reported Location back Intensity 7 Pain Management Techniques Distraction,Modification of Treatment,Re-positioning, Timing of Activity with Medications M4 PT-IP Mobility and Gait Start: 06/14/22 12:43 Freq: NEEDED Status: Active Protocol: Document 06/16/22 14:32 LJ (Rec: 06/16/22 15:14 LJ [id number]) PT-Bed Mobility Assessment Rolling Type of Rolling Log Rolling,Roll to Right Level of Assist Minimal Assistance,Moderate Assistance,1 Person Assistance Supine to Sit Supine to Sit Maximum Assistance,1 Person Assistance,Bedrails Scooting Scooting to Edge of Bed Maximum Assistance Scooting Up and Down in Bed Maximum Assistance PT-Transfer Assessment Sit to and From Stand Sit to and from Stand Moderate Assistance,2 Person Assistance,Use of Upper Extremities Equipment Transfer Assistive Device Gait Belt,Front Wheeled Walker Transfers Transfer Destination Bed Transfer Ability Level of Assist Moderate Assistance,2 Person Assistance,Use of Upper Extremities Comments Mobility Comments Pt instructed in bed warm-up exerciss including AP, HS, bridging, hip AB/AD, SLR. Completed logroll to right with cues for bending knees and maintianing straight back. Reach with LUE to bedrail Adriana x1. Right SL to sit ModA x 2 for trunk righting and LEs off side of bed with bed tilted ~4 degrees incline. MaxA x1 to position for sitting on side of bed. ModA x1 for sitting balance due to retropulsion. Pt able to sit on side of bed CGA using bed rail RUE and bed cane LUE. Pt reqired mod cueing for foot placement prior to attempting to stand. Pt stood ModA x2. Stood for ~1 min to let tremors subside then ambulated very slowly toward the window ModA x2 with second person primarily for safety. Nursing fixing dressing while pt stood with FWW and CGA x1. Pt requested brief for returning to bed. Pt continued standing with MaxA x2 while slipped brief over one foot a a time. Pt able to maintain SLS with FWW for several seconds during the process. Pt decided to get back into bed so turned to left and ambulated back toward bed. Turned to right and backed to bed several small steps. Pt lowered himself onto side of bed reaching back to bed rail and bed cane CGA x2. Pt then completed SL with MaxA x1 for LEs. Completed Logroll with assist for LEs and trunk alignment MaxA x2. MaxA x1 to position properly in bed. Pt states no pain with transfer. Pain with initial SL>supine but no pain reported returning to bed. in room throughout treatment. Pt left in bed with nursing in attendance and present. Gait Assessment Gait Gait Assistance Required: Minimum Assistance,Moderate Assistance,1 Person Assist,2 Person Assist Distance (Feet) 10 Assistive Devices Assistive Device Gait Belt,Front Wheeled Walker Gait Deviations General Gait Pattern Decreased Stride Length, Decreased Feet Clearance, Festinating,Flexed Trunk, Narrow Based Gait Factors Limiting Gait Function Factors Limiting Gait Function Abnormal Tonal Influences, Decreased Activity Tolerance, Decreased Strength, Incoordination,Limited Range of Motion,Pain,Poor Balance, Poor Safety Awareness Comments Gait Comments see mobility Stair Climbing Assessment Comments Stair Climbing Comments pt not ready to do stair training yet, has 5 stairs B HR (30 wide) to assess if safe to DC home. PT-Balance Assessment Sitting Balance and Reactions Static Sitting Balance Ability Fair Dynamic Sitting Balance Ability Poor Standing Balance and Reactions Static Standing Balance Ability Fair Dynamic Standing Balance Ability Fair Device Used FWW Comments Other Balance Tests/Deviations/Treatment Pt completed single leg stand : bilaterally using FWW standing for several seconds on each LE while assisted pt in donning brief. M5 PT-IP Objective Assessments Start: 06/14/22 12:43 Freq: NEEDED Status: Active Protocol: Document 06/14/22 12:30 DLM (Rec: 06/14/22 13:23 DLM [id number]) Orientation Orientation/Cognition Level of Alertness Alert Orientation Name,Age,Birthday,Month,Date, Year,Day of Week,Place, Situation Language Function Ability No Deficits Noted Safety Awareness Understands Safety Issues Memory Description No Deficits Noted Gross Range of Motion Upper Extremity ROM Assessment Within Functional Limits Lower Extremity ROM Assessment Within Functional Limits Strength Upper Extremity Strength Assessment Bilaterally Impaired Lower Extremity Strength Assessment Bilaterally Impaired Comments Strength Comments generalized weakness post-op Coordination Assessment Gross Coordination Gross Coordination Impaired Assessment Coordination Comments mild to moderate tremors Sensation Assessment Sensation Gross Sensation WNL Comments Sensation Comments hx of LE neuropathy, he denies numbness, no pain reported with left foot wound He reports history of cramping in his LE's. Muscle Tone Muscle Tone WNL No Comments Muscle Tone Comments rigidity throughout, mild to moderate M6 PT-IP Treatment Start: 06/14/22 12:43 Freq: NEEDED Status: Active Protocol: Document 06/16/22 14:32 MEENA (Rec: 06/16/22 15:14 LJ [id number]) Physical Therapy Treatment Exercises Exercises Ankle Pumps,Heel Slides, Straight Leg Raises,Supine Hip Abduction Education Education Provided Precautions,Safety Other Treatments Other Treatment Performed bridging to scoot to side of bed M7 PT-IP Assessment and Plan Start: 06/14/22 12:43 Freq: NEEDED Status: Active Protocol: Document 06/16/22 14:32 LJ (Rec: 06/16/22 15:14 LJ [id number]) PT Summary Assessment and Plan Summary Assessment Summary Pt improved with mobility and gait in afternoon. Less pain experienced with bed mobility. Continues to require MaxAx2- Adriana x1 for bed mobiity and gait. Pt able to stand for 35 min while completing gait training, dessing modification , and brief donning. Pt is inconsistent with level of assist needed. Initial contact is MaxA x2 but as pt gets moving he requires less assist . 2 person assist for bed mobility and 1 person assist for gait with second person for safety. in room throughout treatment and saw the amont of assist needed. Pt will reqire SNF to improve mobility, strength, and gait training. Goals Bed Mobility Goal Minimal Assistance Transfer Goal Contact Guard Assistance,Front Wheeled Walker Gait Goal Contact Guard Assistance,Front Wheel Walker Gait Distance 100 feet Other Goals Up/down 5 steps with rail(s) and CG assist Days to Meet Goals 7 Frequency of Treatment Frequency Of Treatment Twice a Day Treatment Plan Physical Therapy Treatment Plan Bed Mobility Training,Transfer Training,Gait Training, Therapeutic Exercise,Balance Retraining,Post Op Education, Discharge Planning,Hot or Cold Pack,Neuromuscular Re-ed Other Recommendations and Next Treatment monitor BP, bed mob, transfers Focus and gait w/ FWW longer distances and stair mgt if safe and able. If pt improved drastically CGT with including gait & stairs. Precautions Lumbar Precautions Log Roll,No Twisting,Limit Bending,Lifting Restriction of 10 lbs,Gait Belt above Incisional Area Other Precautions has wound left foot so ambulate with shoes when possible Recommendations To Nursing Amount of Assist Needed 2 Person Assist Discharge Recommendations PT Discharge Recommendations SNF Rehab Other Discharge Recommendations May need SNF due to slow improvements in strength mobility and activity tolerance not consistant. unable provide physical assist needs thus far. Transportation Needs at Discharge Wheelchair/Cabulance,Stretcher /Ambulance
--- NOTE | 2022-06-16 16:55 | PC.NURSE ---
Late entry- Pt states, at home adjusts lispro insulin based on blood sugar, worried that blood sugar keeps getting higher. Spoke to Dr. Grace via phone and notified. Per Dr. Grace, will order Lispro low level protocol, sliding scale. Notified Dr. Grace that pt has no IV access. Per Dr. Grace ok to leave IV out and place one if needed. Also notified Dr. Grace that pt rodriguez was removed 09:01 and pt has been unable to urinate and, feels cramping, bladder scanned pt and 268 ml , per Dr. Grace, monitor pt until end of shift, if he has not urinated place rodriguez catheter.
[2022-06-16 17:21] VITALS: BP 148/75; PULSE 98; RESP 16; TEMP 36.8; O2SAT 98
[2022-06-16 19:25] VITALS: BP 112/61; PULSE 86; RESP 18; TEMP 37.3; O2SAT 97
[2022-06-16] MEDS: INSULIN GLARGINE 100 UNIT/ML 3ML PEN 12 UNIT SUBCUT (20:27)
[2022-06-17] VITALS (7 sets, daily range): BP systolic 91–170; BP diastolic 41–89; PULSE 55–94; RESP 16–18; TEMP 36.1–37.3; O2SAT 94–98
[2022-06-17] MEDS: OXYCODONE IR 5 MG TABLET PO (04:19)
[2022-06-17] MEDS: hydrOXYzine pamoate 25 MG CAPSULE PO (04:19)
[2022-06-17] MEDS: ACETAMINOPHEN 325 MG TABLET 650 MG PO ×4 (05:42→23:42)
--- NOTE | 2022-06-17 08:12 | P.PN_ITS ---
Subjective Subjective Date Patient Seen: 06/17/22 Time Patient Seen: 08:12 Exam Vital Signs (past 8 hours): - 06/17/22 02:49 Temperature 99.1 F Pulse Rate 93 H Respiratory Rate 18 Blood Pressure 161/79 H Pulse Oximetry 98 Oxygen Flow Rate 0 Oxygen Delivery Method Room Air Oxygen Flow Rate 0 Objective Labs Result Diagrams: 06/15/22 09:25 [facility] Medical History (Updated 06/16/22 @ 08:02 by Luz Marina Vick PA-C) Diabetes HLD (hyperlipidemia) Parkinson disease Spinal stenosis Wound of left foot (~2020) Surgical History (Updated 06/16/22 @ 08:02 by Luz Marina Vick PA-C) Hx of discectomy Hx of tonsillectomy Social History household members: spouse Smoking Status: Never smoker alcohol intake: current Assessment & Plan Post-op Postoperative Procedures: Procedures Operation Date: 06/13/22 12:15 Actual Procedure Side Surgeon p L3-4, L4-5 TLIF w. posterior instrumentation -Robot Sylvia Grace MD Quality VTE Deep Vein Thrombosis/Pulmonary Embolism Present on Admission: No
[2022-06-17] MEDS: ATORVASTATIN 20 MG TABLET 10 MG PO (08:17)
[2022-06-17] MEDS: lisinopriL 5 MG TABLET 2.5 MG PO (08:17)
[2022-06-17] MEDS: LIDOCAINE PATCH 1 EACH ADH..PATCH TOP (08:18)
[2022-06-17] MEDS: DAPAGLIFLOZIN PO ×2 (08:18→20:18)
[2022-06-17] MEDS: METFORMIN PO ×2 (08:18→20:18)
[2022-06-17] MEDS: DOCUSATE 100 MG CAPSULE PO ×2 (08:18→20:17)
[2022-06-17] MEDS: INSULIN LISPRO 100 UNIT/ML 3ML VIAL SUBCUT ×2 (08:19→12:00)
--- NOTE | 2022-06-17 08:29 | P.DS_ITS ---
History of Present Illness History of Present Illness Date Patient Seen: 06/17/22 Time Patient Seen: 08:29 Chief complaint: INPT Narrative: Operative Date/Time/Diagnoses Date of procedure: 06/13/22 Time of procedure: 13:20 Pre-op diagnosis: 1. L3-4, L4-5 post laminectomy syndrome 2. L3-4, L4-5 spinal stenosis with radiculopathy 3. Lumbar scoliosis Post-op diagnosis: same Procedure & Clinicians Procedure: 1. L3-4, L4-5 Postero-lateral and posterior interbody fusion 2. L3-4, L4-5 interbody cage placement. 3. L3-4, L4-5 decompressive laminectomy with bilateral facetecomies 4. L3-4, L4-5 Posterior segmental instrumentation 5. [place] of bone marrow from iliac crest 6. Utilization of microsurgical technique and operating microscope 7. Utilization of robotic assisted navigation Same procedure as scheduled: Yes Indications: Patient has been having chronic back pain and worsening lumbar radiculopathy.? Had history of lumbar laminectomy with significant epidural scarring and degenerative scoliosis. Patient failed multiple conservative management with worsening pain weakness and numbness in his lower extremity.? Patient has been having difficulty performing activity of daily living.? After discussing risks benefits of treatment options, patient elected proceed with surgery. Surgeon: Sylvia Grace Wood Setter: Hina Garg Anesthesia Type: General Operative Notes Closure Type: primary Specimen(s): none sent Prosthetic devices, grafts, tissues, transplants, or devices: GLobus CREO MIS screws, Rise cages Applied: catheter Estimated Blood Loss (mL): 200 Blood products transfused: none Discharge Providers Provider Date of admission: 06/13/22 10:41 Discharge Date: 06/18/22 Consults: 06/13/22 19:18 Consult to Occupational Therapy Evaluate & Treat Comment: Physician Instructions: Evaluate and treat Consult to Physical Therapy Evaluate & Treat Comment: Physician Instructions: Evaluate and Treat Discharge provider: Luz Marina Vick PA-C Summary Hospital Course Discharge Diagnosis: Post-laminectomy syndrome, lumbar spondylosis w/ radiculopathy, s/p lumbar fusion Parkinson's disease Diabetes mellitus Hospital Course: Mr Wesley's hospital course was remarkable for honadj-dgzr-yqodehjlqvr progress with physical therapy, likely due to underlying Parkinson's disease. He is managed with carbidopa-levodopa ER 50/200, 2 tabs TID at home, though he reports he may take 2 tabs up to QID to control symptoms. His hospital dosing was increased to QID on POD# 4 at his request. He was evaluated by PT throughout his stay and felt to be most appropriate for discharge to a retirement facility prior to homegoing. I discussed this with his spouse on POD# 4, and she agreed with this plan. His rodriguez catheter was not removed until POD# 3, and on POD# 4 he was voiding without difficulty. He was eating without difficulty. His blood sugars were, for the most part, maintained under 200 with his home medication regimen. Exam Vital Signs (past 8 hours): - 12 02:49 06/17/22 08:14 06/17/22 08:17 Temperature 99.1 F 98.6 F Pulse Rate 93 H 93 H 93 H Respiratory Rate 18 18 Blood Pressure 161/79 H 170/89 H 170/89 H Pulse Oximetry 98 97 Oxygen Flow Rate 0 0 Oxygen Delivery Method Room Air Oxygen Flow Rate 0 Narrative Exam Narrative: Tremor of extremities present at rest and when active. 5/5 strength in hip flexors, quadriceps, hamstrings, DF, PF, EHL bilaterally. Sensation to light touch intact in BLE. Calves soft, compressible, nontender and without palpable cords or masses. Dressing placed intraoperatively is CDI. Objective Labs Result Diagrams: 06/15/22 09:25 [facility] Medical History (Updated 06/16/22 @ 08:02 by Luz Marina Vick PA-C) Diabetes HLD (hyperlipidemia) Parkinson disease Spinal stenosis Wound of left foot (~2020) Surgical History (Updated 06/16/22 @ 08:02 by Luz Marina Vick PA-C) Hx of discectomy Hx of tonsillectomy Social History household members: spouse Smoking Status: Never smoker alcohol intake: current Discharge Assessment & Plan Assessment and Plan Assessment: Post-laminectomy syndrome, lumbar spondylosis w/ radiculopathy, s/p lumbar fusion Parkinson's disease Diabetes mellitus Acute anemia d/t expected surgical blood loss Plan of Treatment: 1) D/c to SNF on 06/18/2022. Oxycodone, Vistaril, lidocaine patches for pain. 2) Carbidopa-levodopa ER 50/200, 2 tabs TID-QID 3) Continue home DM meds 4) Asymptomatic from mild anemia, no intervention necessary Discharge Plan Discharge Plan Transfer to: [facility] Discharge orders & Medications Discharge Orders: Discharge (Order); Ordered 06/18/22 Ordered By: Luz Marina Vick Prescriptions: New docusate sodium 100 mg Capsule 100 mg PO BID PRN (Reason: constipation) Qty: 60 1RF hydroxyzine pamoate 25 mg Capsule 25 mg PO Q4HR PRN (Reason: muscle spasm) Qty: 120 0RF lidocaine 5 % Adhesive Patch,Medicated 1 patch topical BEDTIME PRN (Reason: pain (scale score 4-6)) Qty: 30 1RF oxycodone 5 mg Tablet 5 mg PO Q4HR PRN (Reason: Pain, Moderate (4-6)) Qty: 60 0RF Rx Instructions: 1-2 tabs (5-10mg) q 4hrs PRN moderate to severe pain carbidopa-levodopa 50-200 mg Tablet Extended Release 2 tab PO QID Qty: 240 0RF Continued acetaminophen 325 mg Tablet 325 mg PO Q8H atorvastatin 10 mg Tablet 10 mg PO DAILY lidocaine 5 % Adhesive Patch,Medicated 1 patch TOPICAL DAILY Rx Instructions: leave on most painful area for up to 12 hrs lisinopril 2.5 mg Tablet 2.5 mg PO DAILY insulin lispro [Humalog KwikPen Insulin] 100 unit/mL Insulin Pen 4 unit SUBCUT TID insulin glargine [Lantus Solostar U-100 Insulin] 100 unit/mL (3 mL) Insulin Pen 12 unit SUBCUT BEDTIME Xigduo XR 5-1,000 mg Tablet, Ir - Er, Biphasic 24hr 1 tab PO BID Discontinued carbidopa-levodopa 50-200 mg Tablet Extended Release 2 tab PO TID Rx Instructions: divide evenly over waking hours Follow up/Referrals: Sylvia Grace MD [Physician] - As previously scheduled (Follow up with Luz Marina Vick PA-C on 06/28/2021 @ 4:30 pm at [facility] office in [place]. ) Diet/Activity/Treatments Diet: Carb-consistent/Diabetic Cold/Heat Therapy: Heating pad to back as needed for pain. Other treatments: Activities: -Limit bending, lifting, twisting x6 weeks. No deep bending (more than 90 degrees) or twisting at the waist. No lifting > 20 pounds. -Walk frequently. -Weight-bearing as tolerated. Use front wheeled walker, and progress to cane when safe. -Continue with home exercises as directed by your physical therapist. -Ice your incision as needed for pain/inflammation/swelling. Protect your skin with a folded pillowcase. -Incentive Spirometer (breathing device from hospital): 5-10xs every hour while awake for the first 1-2 weeks. Call the office if you have chest pain, shortness of breath, significant swelling that will not resolve with elevating, fever over 101?, significantly worsening pain, or are concerned you might need to go to the Emergency Room. [facility]: [phone] Skin/Wound/Dressing Care Report to your healthcare provider any signs of infection, such as:: chills, fever, night sweats, unusual drainage and unusual redness Dressing: May shower. Keep dressing as dry as possible. If dressing becomes wet or dirty inside, remove and replace with clean, dry gauze. No bathing or otherwise soaking incisions. Do not apply any creams, lotions, or ointments to incisions. Visit Report/Discharge Packet Instructions: DI for Prescription Opioid Use, DI for Transforaminal Lumbar Interbody Fusion Stand Alone Forms: Surgery Discharge Quality VTE Deep Vein Thrombosis/Pulmonary Embolism Present on Admission: No
--- NOTE | 2022-06-17 09:19 | PT.IPTN ---
Current Diagnoses Acute posthemorrhagic anemia (06/13/22) Type 2 diabetes mellitus without complications (06/13/22) Parkinson's disease (06/13/22) Spondylolisthesis, lumbar region (06/13/22) Spinal stenosis, lumbosacral region (06/13/22) Arthrodesis status (06/13/22) Surgery Performed Operation Date: 06/13/22 12:15 Actual Procedures p L3-4, L4-5 TLIF w. posterior instrumentation -Robot - Sylvia Grace MD Physical Therapy Treatment Note M2 PT-IP Current Condition Start: 06/14/22 12:43 Freq: NEEDED Status: Active Protocol: Document 06/17/22 08:50 DCW (Rec: 06/17/22 09:35 DCW [id number]) Physical Therapy Current Condition Current Condition Evaluation Date 06/14/22 Treatment Diagnosis L3-5 TLIF, impaired mobility/ gait Onset Date 06/13/22 M3 PT-IP Subjective Start: 06/14/22 12:43 Freq: NEEDED Status: Active Protocol: Document 06/17/22 08:50 DCW (Rec: 06/17/22 09:35 DCW [id number]) Subjective Physical Therapy Visit Type Type Treatment Note Visit Start Time 08:50 Visit Stop Time 09:19 Total Visit Minutes 29 Notes entered room mid-session. Pt agreeable to do PT. Physical Therapy Visit Comments Patient Comments Pt notes he has been struggling more with Parkinson 's symptoms due to changes in his medication schedule. Therapy Pain Assessment Pain When Pain Assessed During Mobility Pain Present Pain Present Pain Reported Location back Intensity 8 Pain Management Techniques Distraction,Modification of Treatment,Re-positioning, Timing of Activity with Medications M4 PT-IP Mobility and Gait Start: 06/14/22 12:43 Freq: NEEDED Status: Active Protocol: Document 06/17/22 08:50 DCW (Rec: 06/17/22 09:35 DCW [id number]) PT-Bed Mobility Assessment Rolling Type of Rolling Log Rolling,Roll to Right Level of Assist Moderate Assistance,1 Person Assistance Supine to Sit Supine to Sit Maximum Assistance,1 Person Assistance,Bedrails Scooting Scooting to Edge of Bed Maximum Assistance Scooting Up and Down in Bed Maximum Assistance PT-Transfer Assessment Sit to and From Stand Sit to and from Stand Moderate Assistance,1 Person Assistance,Use of Upper Extremities Equipment Transfer Assistive Device Gait Belt,Front Wheeled Walker Comments Mobility Comments Pt attepted to perform right log roll on flat bed, unable, too painful with attempted assistance, requested bed tilt on axis to right to assist in roll. After standing up, pt had to remain standing and work through Parkinson's tremor, but was short after able to ambulae in room from bed to window, turn 180?, and then get to recliner. Upon lining up to sit on recliner, pt decided he needed to use BSC. Pt sat on BSC, noted it will probably be a while. Pt left on BSC with call-light in reach and in room. RN informed. Gait Assessment Gait Gait Assistance Required: Minimum Assistance,1 Person Assist Distance (Feet) 12 Assistive Devices Assistive Device Gait Belt,Front Wheeled Walker Gait Deviations General Gait Pattern Decreased Stride Length, Decreased Feet Clearance, Festinating,Flexed Trunk, Narrow Based Gait Factors Limiting Gait Function Factors Limiting Gait Function Abnormal Tonal Influences, Decreased Activity Tolerance, Decreased Strength, Incoordination,Limited Range of Motion,Pain,Poor Balance, Poor Safety Awareness Comments Gait Comments see mobility Stair Climbing Assessment Comments Stair Climbing Comments pt not ready to do stair training yet, has 5 stairs B HR (30 wide) to assess if safe to DC home. PT-Balance Assessment Sitting Balance and Reactions Static Sitting Balance Ability Fair Dynamic Sitting Balance Ability Poor Standing Balance and Reactions Static Standing Balance Ability Fair Dynamic Standing Balance Ability Fair Device Used FWW M5 PT-IP Objective Assessments Start: 06/14/22 12:43 Freq: NEEDED Status: Active Protocol: Document 06/14/22 12:30 DL (Rec: 06/14/22 13:23 DLM [id number]) Orientation Orientation/Cognition Level of Alertness Alert Orientation Name,Age,Birthday,Month,Date, Year,Day of Week,Place, Situation Language Function Ability No Deficits Noted Safety Awareness Understands Safety Issues Memory Description No Deficits Noted Gross Range of Motion Upper Extremity ROM Assessment Within Functional Limits Lower Extremity ROM Assessment Within Functional Limits Strength Upper Extremity Strength Assessment Bilaterally Impaired Lower Extremity Strength Assessment Bilaterally Impaired Comments Strength Comments generalized weakness post-op Coordination Assessment Gross Coordination Gross Coordination Impaired Assessment Coordination Comments mild to moderate tremors Sensation Assessment Sensation Gross Sensation WNL Comments Sensation Comments hx of LE neuropathy, he denies numbness, no pain reported with left foot wound He reports history of cramping in his LE's. Muscle Tone Muscle Tone WNL No Comments Muscle Tone Comments rigidity throughout, mild to moderate M6 PT-IP Treatment Start: 06/14/22 12:43 Freq: NEEDED Status: Active Protocol: Document 06/16/22 14:32 LJ (Rec: 06/16/22 15:14 LJ [id number]) Physical Therapy Treatment Exercises Exercises Ankle Pumps,Heel Slides, Straight Leg Raises,Supine Hip Abduction Education Education Provided Precautions,Safety Other Treatments Other Treatment Performed bridging to scoot to side of bed M7 PT-IP Assessment and Plan Start: 06/14/22 12:43 Freq: NEEDED Status: Active Protocol: Document 06/17/22 08:50 DCW (Rec: 06/17/22 09:35 DCW [id number]) PT Summary Assessment and Plan Summary Assessment Summary Pt continuing to experience increased challenge with bed mobility and ambulation. Attempted to use metronome to help pt resolve feeling of feet stuck to the floor. Pt notes he did not feel there was a difference, however therapist felt there was increase in step-length and juliana. Continue plan to discharge to SNF, pt currently too high level of dependence for at home. Goals Bed Mobility Goal Minimal Assistance Transfer Goal Contact Guard Assistance,Front Wheeled Walker Gait Goal Contact Guard Assistance,Front Wheel Walker Gait Distance 100 feet Other Goals Up/down 5 steps with rail(s) and CG assist Days to Meet Goals 7 Frequency of Treatment Frequency Of Treatment Twice a Day Treatment Plan Physical Therapy Treatment Plan Bed Mobility Training,Transfer Training,Gait Training, Therapeutic Exercise,Balance Retraining,Post Op Education, Discharge Planning,Hot or Cold Pack,Neuromuscular Re-ed Other Recommendations and Next Treatment monitor BP, bed mob, transfers Focus and gait w/ FWW longer distances and stair mgt if safe and able. If pt improved drastically CGT with including gait & stairs. Precautions Lumbar Precautions Log Roll,No Twisting,Limit Bending,Lifting Restriction of 10 lbs,Gait Belt above Incisional Area Other Precautions has wound left foot so ambulate with shoes when possible Recommendations To Nursing Amount of Assist Needed 2 Person Assist Discharge Recommendations PT Discharge Recommendations SNF Rehab Other Discharge Recommendations May need SNF due to slow improvements in strength mobility and activity tolerance not consistant. unable provide physical assist needs thus far. Transportation Needs at Discharge Wheelchair/Cabulance,Stretcher /Ambulance
[2022-06-17] MEDS: CARBIDOPA-LEVODOPA ER 50/200 TABLET 2 EACH PO ×4 (09:36→20:18)
--- NOTE | 2022-06-17 10:28 | CM.DPC ---
DCP SNF planning Per Ortho PA, anticipate pt to d/c to SNF tomorrow as he is slower to progress after surgery and today is [place] and pt not yet able to discharge. Per PT, still recommending SNF and pt and spouse agreeable and in the room. Ortho PA completed discharge towards plan of d/c tomorrow 06/18/22. SW called [facility] and confirmed they do not have staff to accept today due to [place] but can accept tomorrow likely even around 1030. SW faxed d/c summary, signed med list, script, orders, PASRR to [facility] to review for morning discharge. COVID swab order placed and SW requested RN to obtain sometime today for morning discharge to SNF tomorrow. SW called other local SNFs and confirmed that none have staffing to accept SNF admission today [place] day. Plan: SW to follow for plan of pt d/c to [facility] in the AM around 1030 and to fax updated COVID swab results. [id number] Salas
--- NOTE | 2022-06-17 13:20 | PT.IPTN ---
Current Diagnoses Acute posthemorrhagic anemia (06/13/22) Type 2 diabetes mellitus without complications (06/13/22) Parkinson's disease (06/13/22) Spondylolisthesis, lumbar region (06/13/22) Spinal stenosis, lumbosacral region (06/13/22) Arthrodesis status (06/13/22) Surgery Performed Operation Date: 06/13/22 12:15 Actual Procedures p L3-4, L4-5 TLIF w. posterior instrumentation -Robot - Sylvia Grace MD Physical Therapy Treatment Note M2 PT-IP Current Condition Start: 06/14/22 12:43 Freq: NEEDED Status: Active Protocol: Document 06/17/22 13:20 DCW (Rec: 06/17/22 14:03 DCW [id number]) Physical Therapy Current Condition Current Condition Evaluation Date 06/14/22 Treatment Diagnosis L3-5 TLIF, impaired mobility/ gait Onset Date 06/13/22 M3 PT-IP Subjective Start: 06/14/22 12:43 Freq: NEEDED Status: Active Protocol: Document 06/17/22 13:20 DCW (Rec: 06/17/22 14:03 DCW [id number]) Subjective Physical Therapy Visit Type Type Treatment Note Visit Start Time 13:20 Visit Stop Time 13:52 Total Visit Minutes 32 Notes Pt agreeable to do PT, hoping to get up from chair, move around some, and get back to chair. Physical Therapy Visit Comments Patient Comments Pt interested in getting a power w/c, feels it will help him get around faster. Therapy Pain Assessment Pain When Pain Assessed During Mobility Pain Present Pain Present Pain Reported Location back Intensity 8 Pain Management Techniques Distraction,Modification of Treatment,Re-positioning, Timing of Activity with Medications M4 PT-IP Mobility and Gait Start: 06/14/22 12:43 Freq: NEEDED Status: Active Protocol: Document 06/17/22 13:20 DCW (Rec: 06/17/22 14:03 DCW [id number]) PT-Transfer Assessment Sit to and From Stand Sit to and from Stand Moderate Assistance,1 Person Assistance,Use of Upper Extremities Equipment Transfer Assistive Device Gait Belt,Front Wheeled Walker Comments Mobility Comments Sit<->stand from recliner, Mod Ax1, verbl cues for hand placement. Pt reporting increased pain this afternoon vs this morning, noting pain in sacrl area into left buttock when attempting to advance left foot, eventually had to return to recliner without performing ambulation. Gait Assessment Comments Gait Comments see mobility Stair Climbing Assessment Comments Stair Climbing Comments pt not ready to do stair training yet, has 5 stairs B HR (30 wide) to assess if safe to DC home. M5 PT-IP Objective Assessments Start: 06/14/22 12:43 Freq: NEEDED Status: Active Protocol: Document 06/14/22 12:30 DLM (Rec: 06/14/22 13:23 DLM [id number]) Orientation Orientation/Cognition Level of Alertness Alert Orientation Name,Age,Birthday,Month,Date, Year,Day of Week,Place, Situation Language Function Ability No Deficits Noted Safety Awareness Understands Safety Issues Memory Description No Deficits Noted Gross Range of Motion Upper Extremity ROM Assessment Within Functional Limits Lower Extremity ROM Assessment Within Functional Limits Strength Upper Extremity Strength Assessment Bilaterally Impaired Lower Extremity Strength Assessment Bilaterally Impaired Comments Strength Comments generalized weakness post-op Coordination Assessment Gross Coordination Gross Coordination Impaired Assessment Coordination Comments mild to moderate tremors Sensation Assessment Sensation Gross Sensation WNL Comments Sensation Comments hx of LE neuropathy, he denies numbness, no pain reported with left foot wound He reports history of cramping in his LE's. Muscle Tone Muscle Tone WNL No Comments Muscle Tone Comments rigidity throughout, mild to moderate M6 PT-IP Treatment Start: 06/14/22 12:43 Freq: NEEDED Status: Active Protocol: Document 06/17/22 13:20 DCW (Rec: 06/17/22 14:03 DCW [id number]) Physical Therapy Treatment Other Treatments Other Treatment Performed Ankle pumps, LAQ, Marching, ankle circles, adductor squeeze with towel roll M7 PT-IP Assessment and Plan Start: 06/14/22 12:43 Freq: NEEDED Status: Active Protocol: Document 06/17/22 13:20 DCW (Rec: 06/17/22 14:03 DCW [id number]) PT Summary Assessment and Plan Summary Assessment Summary Pt much more limited with mobility this afternoon, unable to ambulate after standing due to intense pain in sacrum and left buttock when attempting to advance left foot. Ended up sitting back down in recliner, requested review of seated LE exercises he could perform. Able to fully participate without any complaints of increased back or hip pain. Goals Bed Mobility Goal Minimal Assistance Transfer Goal Contact Guard Assistance,Front Wheeled Walker Gait Goal Contact Guard Assistance,Front Wheel Walker Gait Distance 100 feet Other Goals Up/down 5 steps with rail(s) and CG assist Days to Meet Goals 7 Frequency of Treatment Frequency Of Treatment Twice a Day Treatment Plan Physical Therapy Treatment Plan Bed Mobility Training,Transfer Training,Gait Training, Therapeutic Exercise,Balance Retraining,Post Op Education, Discharge Planning,Hot or Cold Pack,Neuromuscular Re-ed Other Recommendations and Next Treatment monitor BP, bed mob, transfers Focus and gait w/ FWW longer distances and stair mgt if safe and able. If pt improved drastically CGT with including gait & stairs. Precautions Lumbar Precautions Log Roll,No Twisting,Limit Bending,Lifting Restriction of 10 lbs,Gait Belt above Incisional Area Other Precautions has wound left foot so ambulate with shoes when possible Recommendations To Nursing Amount of Assist Needed 1 Person Assist,2 Person Assist Discharge Recommendations PT Discharge Recommendations SNF Rehab Other Discharge Recommendations May need SNF due to slow improvements in strength mobility and activity tolerance not consistant. unable provide physical assist needs thus far. Transportation Needs at Discharge Wheelchair/Cabulance,Stretcher /Ambulance
[2022-06-17 18:02] LABS: COVID19 -Nasal RAPID Negative (Negative)
[2022-06-17] MEDS: INSULIN GLARGINE 100 UNIT/ML 3ML PEN 12 UNIT SUBCUT (20:18)
[2022-06-18 05:04] VITALS: BP 122/67; PULSE 80; RESP 17; TEMP 36.8; O2SAT 100
[2022-06-18] MEDS: OXYCODONE IR 5 MG TABLET PO ×2 (05:34→10:59)
[2022-06-18] MEDS: ACETAMINOPHEN 325 MG TABLET 650 MG PO (05:34)
[2022-06-18] MEDS: CARBIDOPA-LEVODOPA ER 50/200 TABLET 2 EACH PO (05:38)
[2022-06-18 07:45] VITALS: BP 89/48; PULSE 83; RESP 16; TEMP 36.4; O2SAT 97
[2022-06-18 07:50] VITALS: BP 83/47
[2022-06-18 08:20] VITALS: BP 122/57; PULSE 82
[2022-06-18] MEDS: INSULIN LISPRO 100 UNIT/ML 3ML VIAL SUBCUT (08:20)
[2022-06-18] MEDS: ATORVASTATIN 20 MG TABLET 10 MG PO (08:22)
[2022-06-18] MEDS: DOCUSATE 100 MG CAPSULE PO (08:22)
[2022-06-18] MEDS: METFORMIN PO (08:23)
[2022-06-18] MEDS: LIDOCAINE PATCH 1 EACH ADH..PATCH TOP (08:23)
[2022-06-18] MEDS: DAPAGLIFLOZIN PO (08:23)
--- NOTE | 2022-06-18 09:43 | PT.IPTN ---
Current Diagnoses Acute posthemorrhagic anemia (06/13/22) Type 2 diabetes mellitus without complications (06/13/22) Parkinson's disease (06/13/22) Spondylolisthesis, lumbar region (06/13/22) Spinal stenosis, lumbosacral region (06/13/22) Arthrodesis status (06/13/22) Surgery Performed Operation Date: 06/13/22 12:15 Actual Procedures p L3-4, L4-5 TLIF w. posterior instrumentation -Robot - Sylvia Grace MD Physical Therapy Treatment Note M2 PT-IP Current Condition Start: 06/14/22 12:43 Freq: NEEDED Status: Discharge Protocol: Document 06/18/22 09:12 SP (Rec: 06/18/22 16:55 SP [id number]) Physical Therapy Current Condition Current Condition Evaluation Date 06/14/22 Treatment Diagnosis L3-5 TLIF, impaired mobility/ gait Onset Date 06/13/22 M3 PT-IP Subjective Start: 06/14/22 12:43 Freq: NEEDED Status: Discharge Protocol: Document 06/18/22 09:12 SP (Rec: 06/18/22 16:55 SP [id number]) Subjective Physical Therapy Visit Type Type Treatment Note Visit Start Time 09:12 Visit Stop Time 09:43 Total Visit Minutes 31 Notes Unable to acquire waffle cushion for sacral support for buttocks pain, waiting on new shipment arrival. Maybe SNF can provide . Number of TAILOR'S AIDE Visits 1 Physical Therapy Visit Comments Patient Comments Pt interested in getting a power w/c, feels it will help him get around faster. Pt willing to work with therapy upon arrival. Therapy Pain Assessment Pain When Pain Assessed During Mobility Pain Present Pain Present Pain Reported Location Gluteal Intensity 6 Scale Used L lateral sacrum with gait, lessens with movement Description Acute,Spasm,With Movement Pain Behaviors Facial Grimacing Pain Management Techniques Distraction,Modification of Treatment,Re-positioning, Timing of Activity with Medications M4 PT-IP Mobility and Gait Start: 06/14/22 12:43 Freq: NEEDED Status: Discharge Protocol: Document 06/18/22 09:12 SP (Rec: 06/18/22 16:55 SP [id number]) PT-Bed Mobility Assessment Sit to Supine Sit to Supine Minimal Assistance,Moderate Assistance,1 Person Assistance ,Bedrails Scooting Scooting Up and Down in Bed Maximum Assistance PT-Transfer Assessment Sit to and From Stand Sit to and from Stand Minimal Assistance,1 Person Assistance,Use of Upper Extremities Equipment Transfer Assistive Device Gait Belt,Front Wheeled Walker Transfers Transfer Destination Bed,Chair Transfer Technique pt ambulated using FWW Transfer Ability Level of Assist Contact Guard Assistance, Minimal Assistance,1 Person Assistance,Use of Upper Extremities Comments Mobility Comments Pt was up in chair when arrived. Sit<>stand Min Ax1, VCs hand placement. Gait around room and back to chair approx 30 ft w/ FWW CG- Min A. Sat in chair rest. TAILOR'S AIDE unable acquire waffle cushion for sacral support. Sit>stand, SPT w/ FWW to bed CG/ Min A x1, cues hand placement slow descend sit on EOB. Sit> R SL Min A for LEs into bed and Min A LR supine. Max A center upper body in bed, cues self LEs and pelvic bridge centerinig. Positioned pillow under upper thighs for neutral pelvis/ LB support, elevated bed comfort. Pt had call light and all needs in reach with bed alarmed, fall risk. unable to provided assist and pt unable to compelte 5 step stair mgt to go home at this time. Recommending SNF, pt and in agreement. Gait Assessment Gait Gait Assistance Required: Contact Guard Assist,Minimum Assistance,1 Person Assist Distance (Feet) 30 Able to Maintain Weight Bearing Status Yes During Gait Assistive Devices Assistive Device Gait Belt,Front Wheeled Walker Gait Deviations General Gait Pattern Ataxic,Decreased Stride Length ,Decreased Feet Clearance, Flexed Trunk,Narrow Based Gait ,Step-to Gait Factors Limiting Gait Function Factors Limiting Gait Function Abnormal Tonal Influences, Decreased Activity Tolerance, Decreased Strength,Difficulty Following Directions, Incoordination,Limited Range of Motion,Pain,Poor Balance, Poor Safety Awareness Comments Gait Comments Cued increase L>RLE DF during swing phase, increase stride, clearance. Pt reported L gluteal pain this tx, was R yesterday. Improved lateral trunk stability this tx. Improved stagger stepping while pushing FWW coming back to chair. Stair Climbing Assessment Comments Stair Climbing Comments pt not ready to do stair training yet, has 5 stairs B HR (30 wide) to assess if safe to DC home. PT-Balance Assessment Sitting Balance and Reactions Static Sitting Balance Ability Good Dynamic Sitting Balance Ability Fair Standing Balance and Reactions Static Standing Balance Ability Fair Dynamic Standing Balance Ability Fair Device Used FWW M5 PT-IP Objective Assessments Start: 06/14/22 12:43 Freq: NEEDED Status: Discharge Protocol: Document 06/14/22 12:30 DLM (Rec: 06/14/22 13:23 DLM [id number]) Orientation Orientation/Cognition Level of Alertness Alert Orientation Name,Age,Birthday,Month,Date, Year,Day of Week,Place, Situation Language Function Ability No Deficits Noted Safety Awareness Understands Safety Issues Memory Description No Deficits Noted Gross Range of Motion Upper Extremity ROM Assessment Within Functional Limits Lower Extremity ROM Assessment Within Functional Limits Strength Upper Extremity Strength Assessment Bilaterally Impaired Lower Extremity Strength Assessment Bilaterally Impaired Comments Strength Comments generalized weakness post-op Coordination Assessment Gross Coordination Gross Coordination Impaired Assessment Coordination Comments mild to moderate tremors Sensation Assessment Sensation Gross Sensation WNL Comments Sensation Comments hx of LE neuropathy, he denies numbness, no pain reported with left foot wound He reports history of cramping in his LE's. Muscle Tone Muscle Tone WNL No Comments Muscle Tone Comments rigidity throughout, mild to moderate M6 PT-IP Treatment Start: 06/14/22 12:43 Freq: NEEDED Status: Discharge Protocol: Document 06/18/22 09:12 SP (Rec: 06/18/22 16:55 SP [id number]) Physical Therapy Treatment Exercises Exercises Ankle Pumps,Heel Slides,Seated Knee Flexion/Extension Other Treatments Other Treatment Performed seated warm up: AP, LAQ, HT/TR , seated marching; standing w/ FWW wt shift then marching in place, helped improve initiation initial step states is usually difficult. M7 PT-IP Assessment and Plan Start: 06/14/22 12:43 Freq: NEEDED Status: Discharge Protocol: Document 06/18/22 09:12 SP (Rec: 06/18/22 16:55 SP [id number]) PT Summary Assessment and Plan Potential Rehabilitation Potential Good Status of Condition at Evaluation Stable Summary Impairments Pain,ROM,Strength,Balance, Coordination,Tone,Cognition, Bed Mobility,Transfers,Gait, Activity Tolerance Progress Towards Goals Progressing Toward Goals,Slow Progress due to Pain,Slow Progress due to Activity Tolerance Assessment Summary Pt improved mobility this tx. Min A x1 STS, CG/ Min gait w/ FWW, Min A bed mob LEs/ LR, Max centering upper body in bed. Recommending SNF to progress strength, mobility back to PLOF. Pt is used to sleeping on floor, sleep best on hard surfaces, has been a challenge quality sleep in hospital bed/recliner. Goals Bed Mobility Goal Minimal Assistance Transfer Goal Contact Guard Assistance,Front Wheeled Walker Gait Goal Contact Guard Assistance,Front Wheel Walker Gait Distance 100 feet Other Goals Up/down 5 steps with rail(s) and CG assist Days to Meet Goals 7 Frequency of Treatment Frequency Of Treatment Twice a Day Treatment Plan Physical Therapy Treatment Plan Bed Mobility Training,Transfer Training,Gait Training, Therapeutic Exercise,Balance Retraining,Post Op Education, Discharge Planning,Hot or Cold Pack,Neuromuscular Re-ed Other Recommendations and Next Treatment BP, bed mob, transfers/ gait w Focus / FWW progress 4WW when safe, 5 step stair mgt when able/ safe. CGT with pre going home. Precautions Lumbar Precautions Log Roll,No Twisting,Limit Bending,Lifting Restriction of 10 lbs,Gait Belt above Incisional Area Other Precautions has wound left foot so ambulate with shoes when possible (has declined more than nonskid socks in hospital stay due to limited standing performing). Recommendations To Nursing Amount of Assist Needed 1 Person Assist Discharge Recommendations PT Discharge Recommendations SNF Rehab Transportation Needs at Discharge Wheelchair/Cabulance
--- NOTE | 2022-06-18 11:05 | CM.DPNOTE ---
Discharge Planning Note: Patient discharging to [facility] this morning 10:30-11:00. Chart in order to go with. Spouse went home to retrieve his home meds, due to will be needed at [facility] today. Patient's BP stabilized after breakfast today. Plan: DC to [facility] this am. Ann Shay RN/ANAYAP
--- NOTE | 2022-06-18 13:37 | PC.NURSE ---
Late entry from discharge: Confirmed with Dr. Griffith that patient is still ok to leave. Discharge order received for today, as scheduled to discharge to [facility] yesterday, No order changes received. REport was given to Hema at [facility]. Patient was picked up by facility transport, was at bedside. They have no further questions or concerns. No IV in place. Dressing to back CDI (was changed to coversite dressings this morning). Patient medicated with oxycodone for pain prior to leaving. gathered and packed all his belongings.
== END 2022-06-18 11:05 | DRG 455 ==
PROVIDERS: Physician Assistant; Admitting Provider Orthopaedic Surgery Orthopaedic Surgery of the Spine; Referring Provider Orthopaedic Surgery Orthopaedic Surgery of the Spine; Visit Provider Orthopaedic Surgery Orthopaedic Surgery of the Spine
PROC: 0SG10AJ Fusion of 2 or more Lumbar Vertebral Joints with Interbody Fusion Device, Posterior Approach, Anterior Column, Open Approach (ICD-10-PCS; principal; 2022-06-13 12:15)
DX: M48.061 Spinal stenosis, lumbar region without neurogenic claudication (principal); M43.16 Spondylolisthesis, lumbar region; M54.16 Radiculopathy, lumbar region; M96.1 Postlaminectomy syndrome, not elsewhere classified; M41.9 Scoliosis, unspecified; G20 Parkinson's disease; I95.9 Hypotension, unspecified; E11.9 Type 2 diabetes mellitus without complications; E78.5 Hyperlipidemia, unspecified; Z79.84 Long term (current) use of oral hypoglycemic drugs; Z79.4 Long term (current) use of insulin; Z20.822 Contact with and (suspected) exposure to COVID-19
CPT/HCPCS: 36415; 72100; 76000; 82962; 85014; 85018; 87635; 97110; 97112; 97116; 97163; 97167; 97530; 97535; C9803; C9290; J0690; J1170; J1815; J2405; J2704; J3010; J3410